=== PATIENT | female | born 1945 | race Caucasian/White ===

== ENCOUNTER 2020-02-04 11:00 | Emergency (ER) | payer MEDICARE, OTHER ==
[~2020-02-04] VITALS: Ht 157.5 cm; Wt 97.0 kg
[~2020-02-04 11:00] MED LIST: ASPI325T11 PO; CHOL10002 PO; FERR325T14 PO; HYDR12.575 PO; LISI10TA2 PO; MELO7.5T5 PO; MULT-460 PO
--- NOTE | 2020-02-04 11:44 | PHYS DOC ---
Past Medical History Past Medical History: Hypertension (HUSSEIN SUNG APRN) Past Surgical History: Other Additional Past Surgical Histo: UNKNOWN (HUSSEIN SUNG APRN) Smoking Status: Never Smoker Alcohol Use: None (HUSSEIN SUNG APRN) General Adult EDM: Chief Complaint: OTHER COMPLAINTS HPI: HPI: Patient is a 74 year old female with history of hypertension who presents the ED today complaining of 7 out of 10 left flank pain that began 2 weeks ago. Patient describes the pain as a stinging sensation. States the pain is intermi ttent and worse on movement. States she was evaluated by the PCP and they decided it was a muscle pull. She states she has been taking muscle relaxers and Aleve with no relief. Denies any chest pain, shortness of breath. Denies any urgency, frequency or dysuria. (HUSSEIN SUNG APRN) Review of Systems: Review of Systems: Constitutional: Denies fever or chills. [] Eyes: Denies change in visual acuity. [] HENT: Denies nasal congestion or sore throat. [] Respiratory: Denies cough or shortness of breath. [] Cardiovascular: Denies chest pain or edema. [] GI: Denies abdominal pain, nausea, vomiting, bloody stools or diarrhea. [] : Reports left flank pain. Denies dysuria. [] Musculoskeletal: Denies back pain or joint pain. [] Integument: Denies rash. [] Neurologic: Denies headache, focal weakness or sensory changes. [] Psychiatric: Denies depression or anxiety. [] (HUSSEIN SUNG APRN) Heart Score: Risk Factors: Risk Factors: DM, Current or recent (<one month) smoker, HTN, HLP, family history of CAD, obesity. Risk Scores: Score 0 - 3: 2.5% MACE over next 6 weeks - Discharge Home Score 4 - 6: 20.3% MACE over next 6 weeks - Admit for Clinical Observation Score 7 - 10: 72.7% MACE over next 6 weeks - Early Invasive Strategies (HUSSEIN SUNG APRN) Allergies: Allergies: Allergies Coded Allergies Type Severity Reaction Last Updated Verified hydrocodone Adverse Reaction Mild Nausea 09/05/15 Yes (HUSSEIN SUNG APRN) Physical Exam: PE: Constitutional: Well developed, well nourished, no acute distress, non-toxic appearance. [] HENT: Normocephalic, atraumatic, bilateral external ears normal, oropharynx moist, no oral exudates, nose normal. [] Eyes: PERRLA, EOMI, conjunctiva normal, no discharge. [] Neck: Normal range of motion, no tenderness, supple, no stridor. [] Cardiovascular:Heart rate regular rhythm, no murmur [] Lungs & Thorax: Bilateral breath sounds clear to auscultation [] Abdomen: Bowel sounds normal, soft, no tenderness, no masses, no pulsatile masses. [] Skin: Warm, dry, no erythema, no rash. [] Back: No tenderness, no CVA tenderness. Diffuse tenderness to the left flank muscles. Extremities: No tenderness, no cyanosis, no clubbing, ROM intact, no edema. [] Neurologic: Alert and oriented X 3, normal motor function, normal sensory function, no focal deficits noted. [] Psychologic: Affect normal, judgement normal, mood normal. [] (HUSSEIN SUNG APRN) Current Patient Data: Vital Signs: Vital Signs Date Time Temp Pulse Resp B/P (MAP) Pulse Ox O2 Delivery O2 Flow Rate FiO2 02/04/20 11:07 98.2 91 20 173/76 (108) 97 Room Air 98.2 (HUSSEIN SUNG APRN) EKG: EKG: [] (HUSSEIN SUNG APRN) Radiology/Procedures: Radiology/Procedures: []PROCEDURE: CT ANGIOGRAPHY CHEST CTA chest with and without contrast 02/04/2020. Reason for exam: Left-sided pain. Possible pulmonary embolism. Helical thin section CT images were made through the chest using an infusion of 90 mL Omnipaque 350. MIP reconstructions were performed. Exposure: One or more of the following individualized dose reduction techniques were utilized for this examination: 1. Automated exposure control 2. Adjustment of the mA and/or kV according to patient size 3. Use of iterative reconstruction technique. FINDINGS: There is minimal atelectasis posteriorly in the left lung. No significant pulmonary parenchymal abnormality is seen. The central airways show no obstruction. No enlarged axillary, mediastinal or hilar lymph nodes are seen. There is a borderline enlarged left hilar node. There is asymmetric soft tissue density posteriorly in the upper left breast when compared to the right, extending over about 4.5 cm. There is evidence of a fracture of the lateral left seventh rib. Evaluation of the pulmonary arterial tree shows only modest opacification of pulmonary artery branches. No abnormal filling defect is seen, extending at least to the proximal subsegmental branch level. Images through the upper abdomen show no significant abnormality. IMPRESSION: No evidence of pulmonary embolism. Contrast opacification of the vessels was only moderate, and smaller peripheral emboli could be missed. There is evidence of a left lateral eighth rib fracture. There is some density in the upper left breast. This is nonspecific. A neoplastic mass is possible, but if there was trauma this could be a hematoma. Electronically signed by: Anaya Remy Jr., MD (02/04/2020 2:42 PM) [id number] DICTATED and SIGNED BY: ANAYA REMY Jr, MD DATE: 02/04/20 144 PROCEDURE: CT ABDOMEN PELVIS WO CONTRAST PQRS Compliance Statement: One or more of the following individualized dose reduction techniques were utilized for this examination: 1. Automated exposure control 2. Adjustment of the mA and/or kV according to patient size 3. Use of iterative reconstruction technique CT abdomen/pelvis without contrast 02/04/2020 11:49 AM INDICATION: Left flank pain COMPARISON: None available TECHNIQUE: Multiple axial CT images of the abdomen and pelvis were obtained without intravenous contrast. Coronal and sagittal reformats are provided. FINDINGS: There is bibasilar subsegmental atelectasis. Heart size is within normal limits. There is small hiatal hernia. Evaluation of the solid abdominal viscera is limited by lack of intravenous contrast. Calcifications within the liver and spleen likely represent sequela prior granulomatous exposure. Adrenal gland is normal. There is a left adrenal nodule with attenuation of 9 Hounsfield units suggestive of a lipid rich adrenal adenoma measuring 1.9 x 1.1 cm. Pancreas is normal in appearance. Gallbladder is present without adjacent inflammation. Abdominal aorta is normal in course and caliber. No pathologically enlarged lymph nodes are identified in abdomen and pelvis. There is no free fluid or free intraperitoneal air. Small fat-containing umbilical hernia measuring 2.5 cm at the neck. There is moderate to advanced colonic diverticulosis with minimal adjacent inflammation at the proximal sigmoid colon (series 2, image 127). Consideration may be given for mild diverticulitis. No peridiverticular abscess or free intracranial air. Appendix is normal in appearance. Kidneys are symmetric in appearance. No hydronephrosis or suspicious renal mass. No calculi identified within the kidneys, ureters or urinary bladder. Urinary bladder is within normal limits given degree of distention. No suspicious pelvic mass is identified. Transitional anatomy is noted at the right lumbosacral junction. There is grade 1 anterolisthesis of L3 on L4. No suspicious osseous lesion. IMPRESSION: Findings are suggestive of mild diverticulitis on the background of moderate to severe diverticulosis. No peridiverticular abscess. No free intraperitoneal air. Lipid rich left adrenal adenoma measures 1.9 x 1.1 cm. Small fat-containing umbilical hernia. Electronically signed by: Kirill Mishra MD (02/04/2020 12:11 PM) [facility] DICTATED and SIGNED BY: KIRILL MISHRA MD DATE: 02/04/20 1211 PROCEDURE: PORTABLE CHEST 1V PORTABLE CHEST 1V 02/04/2020 11:27 AM INDICATION: Left rib and flank pain COMPARISON: 08/20/2015 TECHNIQUE: Portable frontal view of the chest is provided. FINDINGS: The cardiomediastinal silhouette is within normal limits. Lungs are clear. There are no significant pleural effusions. There is no pulmonary vascular congestion. No pneumothorax. No suspicious osseous abnormality. IMPRESSION: There is no acute cardiopulmonary process. Electronically signed by: Kirill Mishra MD (02/04/2020 11:48 AM) [facility] DICTATED and SIGNED BY: KIRILL MISHRA MD DATE: 02/04/20 1148 (HUSSEIN SUNG APRN) Course & Med Decision Making: Course & Med Decision Making Pertinent Labs and Imaging studies reviewed. (See chart for details) This is a 74-year-old female patient presenting to the ED today with left flank pain for 2 weeks. Urine analysis noted for UTI, CBC with a normal WBC, normal hemoglobin and hematocrit, CMP with no acute findings. D-dimer 1.31. CTA chest was negative for any acute findings. Noted for dense region in the breast which patient was notified to follow-up with the PCP for possible mammogram also noted for left rib [address] of the abdomen and pelvic was noted for diverticulitis. Patient received Rocephin in the ED. She was discharged on Cipro and Flagyl. Follow-up with PCP next week. Deep breath encouraged. (HUSSEIN USNG APRN) Dragon Disclaimer: Dragon Disclaimer: This electronic medical record was generated, in whole or in part, using a voice recognition dictation system. (HUSSEIN SUNG APRN) Departure Departure Impression: Primary Impression: Urinary tract infection Qualified Codes: N30.00 - Acute cystitis without hematuria Additional Impressions: Diverticulitis Left rib fracture Qualified Codes: S22.32XA - Fracture of one rib, left side, initial encounter for closed fracture Disposition: HOME, SELF-CARE Condition: STABLE Referrals: LUX ORTIZ MD (PCP) Follow-up next week Patient Instructions: Diverticulitis, Rib Fracture, [id number], Urinary Tract Infection Additional Instructions: You were evaluated in the emergency room and noted for urinary tract infection, you also noted for diverticulitis. Take the prescribed antibiotics until completed. You have a dense region in your showing up on the CAT scan left breast, this needs to be followed up with your doctor for possible mammogram You also have left rib fracture. Please ice the afffected left rib area. Take deep breaths. Follow up with your doctor next week Scripts Metronidazole (FLAGYL) 500 Mg Tablet 500 MG PO TID, #21 TAB Prov: HUSSEIN SUNG APRN 9// Ciprofloxacin Hcl (CIPRO) 500 Mg Tablet 1 TAB PO BID for 7 Days, #14 TAB 0 Refills Prov: HUSSEIN SUNG APRN //20 Hydrocodone/Apap 5-325 (NORCO 5-325 TABLET) 1 Each Tablet 1 TAB PO Q8HRS PRN for PAIN, #8 TAB Prov: HUSSEIN SUNG APRN 9//20 Ondansetron Hcl (ZOFRAN) 4 Mg Tablet 1 TAB PO Q6HRS, #20 TAB Prov: HUSSEIN SUNG APRN 920 Justicifation of Admission Dx: Justifications for Admission: Justification of Admission Dx: N/A (HUSSEIN SUNG APRN) Attending Signature Attending Signature I have reviewed the PA/SECURITIES DEALER's note and plan of care. I was available for consultation as needed during the patient's visit in the emergency department. I agree with the clinical impression, plan, and disposition. (SHYANNE BOSS DO) HUSSEIN SUNG APRN Feb 04, 2020 11:44 SHYANNE BOSS DO Feb 05, 2020 06:19
--- NOTE | 2020-02-04 11:51 | RAD ---
PORTABLE CHEST 1V 02/04/2020 11:27 AM INDICATION: Left rib and flank pain COMPARISON: 08/20/2015 TECHNIQUE: Portable frontal view of the chest is provided. FINDINGS: The cardiomediastinal silhouette is within normal limits. Lungs are clear. There are no significant pleural effusions. There is no pulmonary vascular congestion. No pneumothorax. No suspicious osseous abnormality. IMPRESSION: There is no acute cardiopulmonary process. Electronically signed by: Joceline Alvarenga MD (02/04/2020 11:48 AM) [facility]
[2020-02-04 11:54] LABS: BILIRUBIN,URINE NEGATIVE (NEG); CLARITY,URINE CLEAR; COLOR,URINE YELLOW; NITRITE,URINE NEGATIVE (NEG); PROTEIN,URINE NEGATIVE (NEG-TRACE); UROBILINOGEN,URINE 0.2 mg/dL (0.2 mg/dL)
[2020-02-04 12:02] LABS: BARBITURATES NEG (NEG); BENZODIAZEPINES NEG (NEG); CANNABINOIDS NEG (NEG); COCAINE NEG (NEG); METHADONE NEG (NEG); OPIATES NEG (NEG); PHENCYCLIDINE NEG (NEG)
[2020-02-04 12:03] LABS: AMPHETAMINE/METHAMPHETAMINE NEG (NEG)
[2020-02-04 12:06] LABS: SQUAMOUS EPITHELIAL CELL,UR MOD /LPF
[2020-02-04 12:07] LABS: RBC,URINE OCC /HPF (0-2)
[2020-02-04 12:08] LABS: BACTERIA,URINE FEW /HPF (0-FEW)
--- NOTE | 2020-02-04 12:14 | RAD ---
PQRS Compliance Statement: One or more of the following individualized dose reduction techniques were utilized for this examination: 1. Automated exposure control 2. Adjustment of the mA and/or kV according to patient size 3. Use of iterative reconstruction technique CT abdomen/pelvis without contrast 02/04/2020 11:49 AM INDICATION: Left flank pain COMPARISON: None available TECHNIQUE: Multiple axial CT images of the abdomen and pelvis were obtained without intravenous contrast. Coronal and sagittal reformats are provided. FINDINGS: There is bibasilar subsegmental atelectasis. Heart size is within normal limits. There is small hiatal hernia. Evaluation of the solid abdominal viscera is limited by lack of intravenous contrast. Calcifications within the liver and spleen likely represent sequela prior granulomatous exposure. Adrenal gland is normal. There is a left adrenal nodule with attenuation of 9 Hounsfield units suggestive of a lipid rich adrenal adenoma measuring 1.9 x 1.1 cm. Pancreas is normal in appearance. Gallbladder is present without adjacent inflammation. Abdominal aorta is normal in course and caliber. No pathologically enlarged lymph nodes are identified in abdomen and pelvis. There is no free fluid or free intraperitoneal air. Small fat-containing umbilical hernia measuring 2.5 cm at the neck. There is moderate to advanced colonic diverticulosis with minimal adjacent inflammation at the proximal sigmoid colon (series 2, image 127). Consideration may be given for mild diverticulitis. No peridiverticular abscess or free intracranial air. Appendix is normal in appearance. Kidneys are symmetric in appearance. No hydronephrosis or suspicious renal mass. No calculi identified within the kidneys, ureters or urinary bladder. Urinary bladder is within normal limits given degree of distention. No suspicious pelvic mass is identified. Transitional anatomy is noted at the right lumbosacral junction. There is grade 1 anterolisthesis of L3 on L4. No suspicious osseous lesion. IMPRESSION: Findings are suggestive of mild diverticulitis on the background of moderate to severe diverticulosis. No peridiverticular abscess. No free intraperitoneal air. Lipid rich left adrenal adenoma measures 1.9 x 1.1 cm. Small fat-containing umbilical hernia. Electronically signed by: Joceline Alvarenga MD (02/04/2020 12:11 PM) [facility]
[2020-02-04 12:51] LABS: BASO # 0.1 x10^3/uL (0.0-0.2); BASO % 1 % (0-3); EOS # 0.3 x10^3/uL (0.0-0.7); EOS % 3 % (0-3); HEMATOCRIT 40.4 % (36.0-47.0); HEMOGLOBIN 13.4 g/dL (12.0-15.5); LYMPH # 1.3 x10^3/uL (1.0-4.8); LYMPH % 14 % (24-48); MEAN CORPUSCULAR HEMOGLOBIN 29 pg (25-35); MEAN CORPUSCULAR HGB CONC 33 g/dL (31-37); MEAN CORPUSCULAR VOLUME 88 fL (79-100); MONO # 0.9 x10^3/uL (0.0-1.1); MONO % 10 % (0-9); NEUT # 6.4 x10^3/uL (1.8-7.7); NEUT % 72 % (31-73); PLATELET COUNT 321 x10^3/uL (140-400); RED BLOOD COUNT 4.59 x10^6/uL (3.50-5.40); RED CELL DISTRIBUTION WIDTH 14.9 % (11.5-14.5)
[2020-02-04 13:01] LABS: PROTHROMBIN TIME PATIENT 13.1 SEC (11.7-14.0)
[2020-02-04 13:08] LABS: CALCIUM 8.9 mg/dL (8.5-10.1); GFR 54.1; POTASSIUM 4.2 mmol/L (3.5-5.1)
[2020-02-04 13:09] LABS: ALBUMIN 3.2 g/dL (3.4-5.0); ALBUMIN/GLOBULIN RATIO 0.8 (1.0-1.7); D-DIMER 1.31 ug/mlFEU (0.00-0.50); MAGNESIUM 1.9 mg/dL (1.8-2.4); TOTAL BILIRUBIN 0.3 mg/dL (0.2-1.0); TOTAL PROTEIN 7.1 g/dL (6.4-8.2)
--- NOTE | 2020-02-04 13:17 | EKG ---
[facility] [address] [place] [address] Test Date: 2020-02-04 Test Time: 12:22:38 Pat Name: VINCE FOURNIER Department: Room: Gender: F Wide Area Network Administrator: : 1945 Requested By: HUSSEIN SUNG Order Number: [id number] Reading MD: Measurements Intervals Spur Rate: 86 P: -50 MS: 140 QRS: -10 QRSD: 84 T: -5 QT: 362 QTc: 436 Interpretive Statements SINUS RHYTHM LEFTWARD AXIS QRS(T) CONTOUR ABNORMALITY CONSIDER INFERIOR INFARCT POSSIBLY ABNORMAL ECG RI6.02 No previous ECG available for comparison
[2020-02-04] MEDS ORDERED: cefTRIAXone IV Push 1 GM VIAL. IVP ONE (13:45)
[2020-02-04] MEDS ORDERED: IOHEXOL 350 MG/ML 100 ML VIAL. IV ONE (14:00)
[2020-02-04] MEDS ORDERED: CONTRAST GIVEN. MC PRN (14:15)
[2020-02-04 14:19] VITALS: BP 139/65
--- NOTE | 2020-02-04 14:45 | RAD ---
CTA chest with and without contrast 02/04/2020. Reason for exam: Left-sided pain. Possible pulmonary embolism. Helical thin section CT images were made through the chest using an infusion of 90 mL Omnipaque 350. MIP reconstructions were performed. Exposure: One or more of the following individualized dose reduction techniques were utilized for this examination: 1. Automated exposure control 2. Adjustment of the mA and/or kV according to patient size 3. Use of iterative reconstruction technique. FINDINGS: There is minimal atelectasis posteriorly in the left lung. No significant pulmonary parenchymal abnormality is seen. The central airways show no obstruction. No enlarged axillary, mediastinal or hilar lymph nodes are seen. There is a borderline enlarged left hilar node. There is asymmetric soft tissue density posteriorly in the upper left breast when compared to the right, extending over about 4.5 cm. There is evidence of a fracture of the lateral left seventh rib. Evaluation of the pulmonary arterial tree shows only modest opacification of pulmonary artery branches. No abnormal filling defect is seen, extending at least to the proximal subsegmental branch level. Images through the upper abdomen show no significant abnormality. IMPRESSION: No evidence of pulmonary embolism. Contrast opacification of the vessels was only moderate, and smaller peripheral emboli could be missed. There is evidence of a left lateral eighth rib fracture. There is some density in the upper left breast. This is nonspecific. A neoplastic mass is possible, but if there was trauma this could be a hematoma. Electronically signed by: Quintin Remy Jr., MD (02/04/2020 2:42 PM) [id number]
[2020-02-04] MEDS ORDERED: ONDA4TAB7 PO (15:39)
[2020-02-04] MEDS ORDERED: HYDR-3164 PO (15:39)
[2020-02-04] MEDS ORDERED: CIPR500T94 PO (15:39)
[2020-02-04] MEDS ORDERED: METR500T PO (15:39)
== END 2020-02-04 16:15 | disposition home or self-care (01) ==
LOC: ER 11:00
DX: S22.32XA Fracture of one rib, left side, initial encounter for closed fracture (principal); N30.00 Acute cystitis without hematuria; R10.9 Unspecified abdominal pain; I10 Essential (primary) hypertension; Z98.890 Other specified postprocedural states; Z88.5 Allergy status to narcotic agent; X58.XXXA Exposure to other specified factors, initial encounter; Y93.89 Activity, other specified; Y92.89 Other specified places as the place of occurrence of the external cause; Y99.8 Other external cause status
CPT/HCPCS: 36415; 71045; 71275; 74176; 80053; 80307; 81001; 83690; 83735; 83880; 84443; 84484; 85025; 85379; 85610; 87086; 93005; 96374; 99285; J0696

== ENCOUNTER → 2020-04-12 | Outpatient (CLI) | payer MEDICARE, OTHER ==
[~2020-04-12] MED LIST changes: +CIPR500T94 PO; +HYDR-3164 PO; +METR500T PO; +ONDA4TAB7 PO
--- NOTE | 2020-04-13 10:00 | RAD ---
Examination: 1. Ultrasound-guided left breast core needle biopsy. 2. Digital left postprocedure mammogram. INDICATION: 75-year-old woman status post lumpectomy for left breast cancer presents with a palpable lump requested for biopsy. COMPARISON: Diagnostic left mammogram of 03/29/2020 and left breast ultrasound of that same day. TECHNIQUE AND FINDINGS: Informed consent was obtained and an appropriate procedural pause observed. Using standard sterile technique, ultrasound guidance and local anesthesia, 3 core biopsy samples were obtained of the 5 cm dominant mass in the left breast at the 2:00 position 6 cm from the nipple. In a-shaped biopsy marker was deployed in the mass and a postprocedure mammogram was obtained after hemostasis was ensured with direct breast compression for several minutes. The postprocedure mammogram showed satisfactory deployment of the S-shaped biopsy marker in the mass in the upper outer left breast with no apparent postbiopsy hematoma. It is noted that there were additional areas of potential sonographic concern in the left breast but since the patient has already undergone ipsilateral breast conservation therapy, a tissue diagnosis of multicentric disease is not likely to beneficially impact the patient's treatment plan. As such, no additional biopsy targets in the left breast were pursued at this visit. Although no request for biopsy of the patient's left axillary lymph nodes was submitted, the abnormal lymph nodes identified on previous left diagnostic breast ultrasound could be targeted for ultrasound-guided biopsy if clinically warranted. IMPRESSION: Successful ultrasound-guided left breast core needle biopsy of a dominant, 5 cm mass in the upper outer left breast. Pathology results are pending. An addendum will be issued once pathology results become available. I discussed this case (and the potential eventual need for left axillary lymph node biopsy) with the referring physician Dr. Blane Paulino's partner Dr. Johnston by telephone at 9:32 AM on 04/13/2020. Electronically signed by: Ilene Sauer MD (04/13/2020 9:57 AM) [id number]
--- NOTE | 2020-04-17 17:09 | PATHOLOGY ---
[facility] Accession Number: [id number] . 01 Material submitted: . breast - LEFT BREAST BIOPSY AT 2:00 6 CMFN. Modifiers: left . 01 Clinical history: . LEFT BREAST MASS AT 2:00 . 02 Diagnosis: Breast tissue, left breast mass 2:00 needle biopsies: - INVASIVE DUCTAL CARCINOMA WITH LOBULAR FEATURES, HISTOLOGIC GRADE 2. SEE COMMENT. (JPM:henny; 04/17/2020) S 04/17/2020 1429 Local . 02 Comment: Sections of the left breast mass at 2:00 needle biopsy reveal an invasive mammary carcinoma. The tumor cells are largely present in cords which infiltrate a fibrous stroma. Tumor cells also focally have a solid nested infiltrative appearance and show no obvious tubule formation. Tumor cells show mild to moderate nuclear pleomorphism. A few mitotic figures are present. There is no lymphovascular tumor invasion. There are no tumor associated calcifications. The invasive tumor measures up to 1.2 cm in greatest dimension on the glass slide. Immunoperoxidase stains for AE1/AE3 and E-cadherin are obtained on block A3 and yield the following results: . AE1/AE3: Tumor cells positive E-cadherin: Tumor cells positive . The morphologic and immunophenotypic findings are supportive of the diagnosis of an invasive ductal carcinoma with lobular features. The case is also examined by Dr. Teran, who concurs with the diagnosis. . Breast prognostic studies are obtained on block A3, the results of which will be reported separately. (JPM:henny; 04/16/2020) . Special stains performed: Immunoperoxidase stains for AE1/AE3 and E-cadherin on A3. . 02 Electronically signed: . Parmjit Tomas MD, Pathologist NPI- [id number] . 01 Gross description: . Received in formalin labeled "Chel Damon, left breast 2:00" are multiple cylindrical cores of rosenberg-white soft tissue measuring in aggregate 2.0 x 0.4 x 0.2 cm. The specimen is submitted entirely in cassettes A1-A3. The specimen is removed from the patient at 1521 and placed in formalin at 1522 on 04/12/2020. The specimen is removed from formalin at 1230 on 04/15/2020. [place] [facility] 04/17/2020 0930 Local . 02 Pathologist provided ICD-10: C50.912 . 02 CPT . 431701, [id number], [id number] Specimen Comment: A courtesy copy of this report has been sent to [phone] Specimen Comment: Report sent to Performed at: 01 [facility] [address] [id number] MD Graeme Teran MD Phone: [phone] Performed at: 02 [facility] [address] [place], [place] [id number] MD Parmjit Tomas MD Phone: [phone]
== END | disposition home or self-care (01) ==
LOC: US 13:09
PROVIDERS: ATTEND Family Medicine
DX: N63.21 Unspecified lump in the left breast, upper outer quadrant (principal); C50.912 Malignant neoplasm of unspecified site of left female breast; I10 Essential (primary) hypertension; M19.90 Unspecified osteoarthritis, unspecified site; Z90.710 Acquired absence of both cervix and uterus; Z98.890 Other specified postprocedural states; Z79.899 Other long term (current) drug therapy; Z79.82 Long term (current) use of aspirin; Z82.49 Family history of ischemic heart disease and other diseases of the circulatory system; Z88.8 Allergy status to other drugs, medicaments and biological substances
CPT/HCPCS: 19083; 77065; 88305; 88341; 88342; 88361; C1713; 19081; 76942

== ENCOUNTER → 2020-05-02 | Outpatient (CLI) | payer MEDICARE, OTHER ==
[~2020-05-02] MED LIST changes: +ATOR10TA60 PO; +LISI-338 PO; +NAPR220C4 PO; +VIT1CAPS12 PO
--- NOTE | 2020-05-03 08:40 | RAD ---
Exam: Ultrasound-guided left axillary lymph node biopsy, performed 03/02/2020. INDICATION: 75-year-old woman with recurrent breast cancer referred for biopsy of upper axillary lymph nodes suspicious for local santiago recurrence. COMPARISON: Left breast ultrasound of 03/29/2020, CT angiogram chest of 02/04/2020. TECHNIQUE AND FINDINGS: Informed consent was obtained and an appropriate procedural pause observed. Using standard sterile technique, ultrasound guidance and local anesthesia, an 18-gauge Temno biopsy needle was advanced through a suspicious 10 mm round level 3 left axillary lymph node and a single core biopsy sample was obtained. An S shaped biopsy marker was deployed in the lymph node and hemostasis ensured with direct biopsy site compression for several minutes to ensure hemostasis. The puncture site was dressed and postprocedure instructions were reviewed prior to patient discharge from imaging suite. There were no apparent complications. IMPRESSION: Successful ultrasound-guided left level 3 axillary lymph node core needle biopsy. Pathology results are pending. An addendum will be issued once pathology results become available. Electronically signed by: Ilene Sauer MD (05/03/2020 8:35 AM) [id number]
--- NOTE | 2020-05-03 18:55 | PATHOLOGY ---
[facility] Accession Number: [id number] . 01 Material submitted: . lymph node - LEFT AXILLARY NODE, JUST INFERIOR TO CLAVICLE. Modifiers: left, axillary tail, inferior . 01 Clinical history: . LEFT BREAST CANCER, ABNORMAL LEFT AXILLARY NODE . 02 Diagnosis: Lymph node, left axillary node inferior to clavicle needle biopsy: - METASTATIC CARCINOMA CONSISTENT WITH MAMMARY ORIGIN. SEE COMMENT. (JPM:henny; 05/03/2020) S 05/03/2020 0915 Local . 02 Comment: Sections of the left axillary node inferior to clavicle needle biopsy show extensive santiago replacement by a metastatic epithelial neoplasm. The tumor cells are present in solid nests and cords and show no obvious tubule formation. The tumor cells have modest amounts of cytoplasm, and possess rounded to ovoid nuclei showing mild to moderate nuclear pleomorphism. The morphology of the neoplasm is similar to that of the previous left breast mass at 2:00 needle biopsy ([id number]; [facility] [phone]). The case is also examined by Dr. Silva, who concurs with the diagnosis. The results are reported to Dr. Turner on 05/03/20 at 1:10 PM. (JPM:henny; 05/03/2020) . 02 Electronically signed: . Parmjit Tomas MD, Pathologist NPI- [id number] . 01 Gross description: . The specimen is received in formalin, labeled "Chel Damon, left axilla node". Received is a single needle core of pale rosenberg soft tissue measuring 1.3 cm in length by 0.1 cm in diameter. The specimen is submitted entirely in cassette A1. (CAA; 05/02/2020) QAC/QAC 05/02/2020 1741 Local . 02 Pathologist provided ICD-10: C77.3 . 02 CPT . 126034 Specimen Comment: A courtesy copy of this report has been sent to [phone], [phone] Specimen Comment: [id number], Specimen Comment: Report sent to ,DR TURNER / DR ORTIZ Performed at: 01 [facility] [address], [place] [id number] MD Graeme Teran MD Phone: [phone] Performed at: 02 [facility] [place] [address] [place], [place] [id number] MD Parmjit Tomas MD Phone: [phone]
== END | disposition home or self-care (01) ==
LOC: US 08:21
PROVIDERS: ATTEND Surgery
DX: C77.3 Secondary and unspecified malignant neoplasm of axilla and upper limb lymph nodes (principal); I10 Essential (primary) hypertension; M19.90 Unspecified osteoarthritis, unspecified site; Z85.3 Personal history of malignant neoplasm of breast; Z90.710 Acquired absence of both cervix and uterus; Z98.890 Other specified postprocedural states; Z79.899 Other long term (current) drug therapy
CPT/HCPCS: 38505; 76942; 88305; C1713; 19081; 19083; 19084

== ENCOUNTER → 2020-05-08 | Outpatient (CLI) | payer MEDICARE, OTHER ==
[~2020-05-08] MED LIST changes: -ATOR10TA60 PO; -LISI-338 PO; -NAPR220C4 PO; -VIT1CAPS12 PO
[2020-05-08 14:33] LABS: BASO # 0.1 x10^3/uL (0.0-0.2); BASO % 1 % (0-3); EOS # 0.3 x10^3/uL (0.0-0.7); EOS % 2 % (0-3); HEMATOCRIT 34.1 % (36.0-47.0); HEMOGLOBIN 11.4 g/dL (12.0-15.5); LYMPH # 1.4 x10^3/uL (1.0-4.8); LYMPH % 10 % (24-48); MEAN CORPUSCULAR HEMOGLOBIN 28 pg (25-35); MEAN CORPUSCULAR HGB CONC 33 g/dL (31-37); MEAN CORPUSCULAR VOLUME 85 fL (79-100); MONO % 7 % (0-9); NEUT # 11.6 x10^3/uL (1.8-7.7); NEUT % 81 % (31-73); PLATELET COUNT 312 x10^3/uL (140-400); RED BLOOD COUNT 4.01 x10^6/uL (3.50-5.40); RED CELL DISTRIBUTION WIDTH 16.4 % (11.5-14.5); WHITE BLOOD COUNT 14.3 x10^3/uL (4.0-11.0)
[2020-05-08 14:45] LABS: CALCIUM 9.7 mg/dL (8.5-10.1); CREATININE 1.4 mg/dL (0.6-1.0); GFR 36.6; POTASSIUM 3.6 mmol/L (3.5-5.1)
[2020-05-08 14:49] LABS: ALBUMIN 2.9 g/dL (3.4-5.0); ALBUMIN/GLOBULIN RATIO 0.7 (1.0-1.7); TOTAL BILIRUBIN 0.4 mg/dL (0.2-1.0); TOTAL PROTEIN 7.1 g/dL (6.4-8.2)
[2020-05-08 16:00] LABS: % BANDS 5 % (0-9); % PROS 1 % (0-0); % SEGS 75 % (35-66); PLT ESTIMATE ADEQUATE (ADEQUATE)
[2020-05-08 16:01] LABS: % EOS 3 % (0-5); % LYMPHS 9 % (24-48); % MONOS 5 % (0-10); % MYELOS 2 % (0-0)
[2020-05-08 16:02] LABS: ANISOCYTOSIS SLIGHT
== END ==
LOC: ONCLAB 14:20
PROVIDERS: ATTEND Internal Medicine Hematology & Oncology
DX: C50.412 Malignant neoplasm of upper-outer quadrant of left female breast (principal)
CPT/HCPCS: 36415; 80053; 85007; 85025

== ENCOUNTER → 2020-05-10 | Outpatient (CLI) | payer MEDICARE, OTHER ==
[~2020-05-10] MED LIST changes: +ATOR10TA60 PO; +IOHEXOL 240 MG/ML 50ML VIAL. PO ONE; +LISI-338 PO; +NAPR220C4 PO; +VIT1CAPS12 PO
--- NOTE | 2020-05-10 12:29 | RAD ---
CT CHEST_ABDOMEN_ AND PELVIS WITHOUT CONTRAST INDICATION: Reason: L BREAST CA PO ONLY PER ORDERS / Spl. Instructions: / History: COMPARISON: None. TECHNIQUE: Multiple contiguous axial images were obtained throughout the chest, abdomen, and pelvis without the use of IV contrast. Axial images were reformatted into coronal and sagittal planes. One or more of th e following dose reduction techniques were utilized: Automated exposure control (AEC), Adjustment of mA and/or kV according to patient size, Use of iterative reconstruction technique such as ASiR, CT sc an done according to ALARA and image gently/image wisely. FINDINGS: Chest Findings: The thyroid is symmetric. There is no axillary, mediastinal, or hilar adenopathy, although evaluatio n of the danisha is limited without IV contrast. Calcified mediastinal and hilar lymph nodes consistent with remote granulomatous disease. The thoracic aorta diameter is normal. Cardiomegaly. There is no pericardial effusion. Small hiatal h ernia. The central airways are patent. No pulmonary mass or consolidation. Stable middle lobe 4 mm nodule (s eries 2 image 35). Calcified pulmonary granulomas. No pleural abnormality. Abdomen findings: Evaluation of solid abdominal viscera is limited without the use of IV contrast. However, the gallbl adder and pancreas are unremarkable. Calcified splenic and hepatic granulomas. Stable left adrenal th ickening. The kidneys are unremarkable. There is no significant mesenteric or retroperitoneal adenop athy identified, though evaluation is limited without intravenous contrast. There is no evidence of free intraperitoneal fluid or pneumoperitoneum. Extensive colonic diverticulosis. Mild pericolic inf lammation along the distal transverse colon. Pelvis findings: The bladder and distal ureters are unremarkable. There is no significant pelvic ascites. No signifi cant iliac or inguinal adenopathy is identified. Numerous small lytic lesions throughout the visualized osseous structures. Mild height loss along the superior endplate of L4. Redemonstration of the patient's left breast mass consistent with history o f breast cancer. IMPRESSION: 1. Numerous small lytic lesions throughout the visualized osseous structures concerning for osseous m etastatic disease. Subacute rib fractures and mild height loss at L4, possibly pathologic. 2. No pulmonary mass or thoracic lymphadenopathy. No abdominal mass or lymphadenopathy, although eval uation of solid organs is impaired by lack of intravenous contrast. 3. Extensive colonic diverticulosis with mild pericolic inflammation along the distal transverse colo n, possibly a mild diverticulitis. No abscess or free air. 4. Redemonstrated left breast mass. Electronically signed by: Pastor Lizarraga MD (05/10/2020 12:26 PM) [id number]
== END ==
LOC: CT 10:53
PROVIDERS: ATTEND Internal Medicine Hematology & Oncology
DX: C50.912 Malignant neoplasm of unspecified site of left female breast (principal); K44.9 Diaphragmatic hernia without obstruction or gangrene; I51.7 Cardiomegaly; N63.20 Unspecified lump in the left breast, unspecified quadrant; K57.30 Diverticulosis of large intestine without perforation or abscess without bleeding
CPT/HCPCS: 71250; 74176

== ENCOUNTER → 2020-05-11 | Outpatient (CLI) | payer MEDICARE, OTHER ==
[~2020-05-11] MED LIST changes: +IOHEXOL 240 MG/ML 50ML VIAL. ONE; -IOHEXOL 240 MG/ML 50ML VIAL. PO ONE
--- NOTE | 2020-05-11 17:35 | RAD ---
History: Breast cancer staging Comparison: CT from May 10, 2020 Procedure: 25.4 mCI of Tc 99m MDP was injected intravenously and delayed scintigraphic images were ob tained of the skeletal system. Findings: Multifocal regions of abnormal radiotracer uptake throughout the axial and appendicular ske leton. This includes within the calvarium on the right, bilateral femurs, multiple left tibial lesion s, pelvis bilaterally. Bilateral humerus. Multiple bilateral ribs, multiple abnormal regions of incre ased uptake within the spine. There are also lesions seen in the bilateral partially visualized humer us. Impression: 1. Multifocal abnormal radiotracer uptake is seen scattered throughout the axial and appendicular ske leton concerning for diffuse osseous metastatic disease. Electronically signed by: Noble Paulino MD (05/11/2020 5:33 PM) [id number]
== END ==
LOC: NM 10:00
PROVIDERS: ATTEND Internal Medicine Hematology & Oncology
DX: C79.51 Secondary malignant neoplasm of bone (principal); C50.412 Malignant neoplasm of upper-outer quadrant of left female breast
CPT/HCPCS: 78306; A9503

== ENCOUNTER → 2020-05-11 | Outpatient (CLI) | payer MEDICARE, OTHER ==
[~2020-05-11] MED LIST changes: -IOHEXOL 240 MG/ML 50ML VIAL. ONE
== END ==
LOC: LAB 10:02
PROVIDERS: ATTEND Surgery
DX: Z01.812 Encounter for preprocedural laboratory examination (principal); Z20.828 Contact with and (suspected) exposure to other viral communicable diseases
CPT/HCPCS: U0003

== ENCOUNTER 2020-05-16 08:19 | Day surgery (SDC) | payer MEDICARE, OTHER ==
[~2020-05-16] VITALS: Ht 157.5 cm; Wt 90.5 kg
[~2020-05-16 08:19] MED LIST changes: +BUPIVACAINE-EPI 0.5%-1:200000 MPF 30 ML VIAL. INJ ONE; +HEPARIN SODIUM 5,000 UNIT in IV NORMAL SALINE 500ML BAG 500 ML IRR ONE; +HYDROmorphone 2 MG/ML VIAL IV PRN; +IV RINGERS,LACTATED 1000ML 1,000 ML IV SCH; +LIDOCAINE 1% PF 2 ML VIAL. ID PRN; -LISI-338 PO; +LISI-517 PO; +LISI10TA16 PO; -LISI10TA2 PO; +MORPHINE SULFATE 2 MG/ML VIAL. IV PRN; +ONDANSETRON PF 4 MG/2 ML VIAL. IV PRN; +PROCHLORPERAZINE 10 MG/2 ML VIAL. IV PRN; +fentaNYL PF VIAL 100 MCG/2 ML VIAL IV PRN
[2020-05-16] MEDS ORDERED: MIDAZOLAM HCL/PF 2 MG/2 ML VIAL. ONE (09:15)
[2020-05-16] MEDS ORDERED: fentaNYL PF VIAL 250 MCG/5 ML VIAL ONE (09:15)
[2020-05-16] MEDS ORDERED: PROPOFOL 10 MG/ML (20ML) VIAL. IV ONE (09:55)
[2020-05-16] MEDS ORDERED: LIDOCAINE 2% PF 5 ML VIAL. ONE (09:55)
--- NOTE | 2020-05-16 10:51 | PDOC4 ---
Operative Note Operative Note Operative Note: Preoperative Diagnosis: Left breast cancer Postoperative Diagnosis: Same Procedure: Placement of Power Port-A-Cath using SonoSite guidance Surgeon: Humberto Grade Checker: Yolanda STOUT Anesthesia: Gen. EBL: 10 mL Specimen: None Drains: None Complications: None Indication: The patient is a 75 year old femal who was recently diagnosed with left breast cancer. A request was made for placement of a Port-A-Cath to allow for chemotherapy treatment. The details and risks of the procedure were discussed. The risks include bleeding, infection, vessel injury, pneumothorax, pain, anesthetic risk, port, catheter or tubing malfunction or dysfunction, potential need for additional surgery or procedure. The patient understands and would like to proceed. Description: The patient was placed supine on the operating table and general anesthesia was performed. The bilateral neck and chest were prepped with ChloraPrep and draped in a standard surgical manner. With SonoSite ultrasound guidance the right internal jugular vein was readily identified and appeared patent. Entry was made into the vein with the skinny introducer needle under ultrasound guidance. The skinny guidewire passed readily into the central venous system. A small incision was made at the skin exit site. The skinny sheath was then placed over the guidewire. The larger guidewire was then placed within the sheath into the central venous system. Intraoperative fluoroscopy confirmed good position of the guidewire in the central venous system. The dilator and sheath were then placed over the guidewire. The catheter portion was then inserted into the central venous system and visualized using fluoroscopy. A separate right upper chest skin incision was made with a scalpel. A subcutaneous pocket was developed with cautery of sufficient size to accommodate the port. The catheter was then tunneled subcutaneously to the level of the newly formed pocket. Using fluoroscopy the catheter was positioned with the tip in the distal superior vena cava. The catheter was then cut and assembled to the port. The port was then secured to the chest wall with two 2-0 Prolene sutures. Using the Clancy needle the port readily aspirated and flushed without difficulty. Fluoroscopy confirmed good positioning of the catheter with no twists or kinks. The subcutaneous tis pilo was approximated with 3-0 Vicryl. The skin was then closed with 4-0 Monocryl. A sterile OpSite dressing was then applied. The patient tolerated the procedure well and was sent to the recovery room in stable condition. At the end of the case all counts were correct. GABRIELLE TURNER MD May 16, 2020 10:51
--- NOTE | 2020-05-16 10:52 | DISCH ---
DISCHARGE INSTRUCTIONS Condition on Discharge Condition on Discharge: Stable Activity After Discharge Activity Instructions for Disc: Resume previous activity Diet after Discharge Diet after Discharge: Regular Wound Incision Care Wound/Incision Care: Other, see below (keep port incision clean and dry) Follow-Up Follow up with: Follow with Oncology GABRIELLE TURNER MD May 16, 2020 10:52
[2020-05-16] MEDS ORDERED: SEVOFLURANE 61 TO 120 MINUTES. IH ONE (10:53)
[2020-05-16] MEDS ORDERED: HYDR-3164 PO (11:12)
[2020-05-16] MEDS ORDERED: HYDROcodone/APAP 5/325MG 1 TAB TABLET PO ONE (11:15)
[2020-05-16] MEDS ORDERED: HYDROcodone/APAP 5/325MG 1 TAB TABLET PO PRN (11:15)
[2020-05-16 12:00] VITALS: BP 123/67
== END 2020-05-16 12:50 | disposition home or self-care (01) ==
LOC: SURG 08:19
PROVIDERS: ATTEND Surgery
DX: Z45.2 Encounter for adjustment and management of vascular access device (principal); C50.912 Malignant neoplasm of unspecified site of left female breast; I10 Essential (primary) hypertension; E78.00 Pure hypercholesterolemia, unspecified; M19.90 Unspecified osteoarthritis, unspecified site; E66.9 Obesity, unspecified; Z85.3 Personal history of malignant neoplasm of breast; Z90.710 Acquired absence of both cervix and uterus; Z98.890 Other specified postprocedural states; Z79.899 Other long term (current) drug therapy; Z82.49 Family history of ischemic heart disease and other diseases of the circulatory system; Z83.3 Family history of diabetes mellitus; Z68.36 Body mass index [BMI] 36.0-36.9, adult
CPT/HCPCS: 36561; 76942; 77001; C1788; J0690; J1644; J2250; J2704; J3010; J7040; 36556

== ENCOUNTER → 2020-05-17 | Outpatient (CLI) | payer MEDICARE, OTHER ==
[2020-05-16 12:00] VITALS: BP 123/67
[~2020-05-17] MED LIST changes: -BUPIVACAINE-EPI 0.5%-1:200000 MPF 30 ML VIAL. INJ ONE; -HEPARIN SODIUM 5,000 UNIT in IV NORMAL SALINE 500ML BAG 500 ML IRR ONE; -HYDROmorphone 2 MG/ML VIAL IV PRN; -IV RINGERS,LACTATED 1000ML 1,000 ML IV SCH; -LIDOCAINE 1% PF 2 ML VIAL. ID PRN; +LISI-338 PO; -LISI-517 PO; -LISI10TA16 PO; +LISI10TA2 PO; -MORPHINE SULFATE 2 MG/ML VIAL. IV PRN; -ONDANSETRON PF 4 MG/2 ML VIAL. IV PRN; -PROCHLORPERAZINE 10 MG/2 ML VIAL. IV PRN; -fentaNYL PF VIAL 100 MCG/2 ML VIAL IV PRN
[2020-05-17 12:35] LABS: BASO # 0.1 x10^3/uL (0.0-0.2); BASO % 1 % (0-3); EOS # 0.1 x10^3/uL (0.0-0.7); EOS % 1 % (0-3); HEMATOCRIT 31.1 % (36.0-47.0); HEMOGLOBIN 9.9 g/dL (12.0-15.5); LYMPH % 11 % (24-48); MEAN CORPUSCULAR HEMOGLOBIN 27 pg (25-35); MEAN CORPUSCULAR HGB CONC 32 g/dL (31-37); MEAN CORPUSCULAR VOLUME 85 fL (79-100); MONO % 11 % (0-9); NEUT # 13.9 x10^3/uL (1.8-7.7); NEUT % 77 % (31-73); PLATELET COUNT 318 x10^3/uL (140-400); RED BLOOD COUNT 3.64 x10^6/uL (3.50-5.40); RED CELL DISTRIBUTION WIDTH 16.5 % (11.5-14.5); WHITE BLOOD COUNT 18.1 x10^3/uL (4.0-11.0)
[2020-05-17 12:41] LABS: CALCIUM 9.4 mg/dL (8.5-10.1); CREATININE 1.2 mg/dL (0.6-1.0); GFR 43.7; POTASSIUM 3.8 mmol/L (3.5-5.1)
[2020-05-17 14:12] LABS: % BANDS 11 % (0-9); % LYMPHS 12 % (24-48); % METAS 2 % (0-0); % MONOS 6 % (0-10); % MYELOS 4 % (0-0); % SEGS 65 % (35-66); ANISOCYTOSIS SLIGHT; PLT ESTIMATE ADEQUATE (ADEQUATE)
== END ==
LOC: ONCLAB 12:21
PROVIDERS: ATTEND Physician Assistant
DX: C50.412 Malignant neoplasm of upper-outer quadrant of left female breast (principal)
CPT/HCPCS: 36415; 80048; 85007; 85025; 86300

== ENCOUNTER → 2020-05-18 | Outpatient (CLI) | payer MEDICARE, OTHER ==
[2020-05-16 12:00] VITALS: BP 123/67
[~2020-05-18] MED LIST changes: +GADOTERATE 7.5 MMOL/15ML VIAL. IVP ONE
--- NOTE | 2020-05-18 16:20 | KCIC ---
MRI BRAIN WO+W Date: 05/18/2020 2:15 PM Indication: BREAST CANCER WITH NAUSEA AND FACIAL NUMBNESS. History: New left sided facial numbness. Recent br ca diagnosis. Comparison: Nuclear medicine bone scan 04/11/2020. Technique: Multiplanar multisequence MRI of the brain was performed with and without intravenous cont rast using the standard protocol. 18 cc Clariscan contrast was administered intravenously during the exam. Findings: No acute infarct. No acute or chronic hemorrhage. The ventricles are normal in size and configuration without hydrocephalus. Mild scattered FLAIR hyperintensities in the subcortical and periventricular deep white matter, a nonspecific finding, most commonly seen with chronic small vessel ischemic disea se. Mild generalized cerebral volume loss Several small enhancing calvarial lesions. The pituitary and sella are normal. No Chiari malformation. The visualized orbits and globes are normal. The visualized paranasal sinuses are clear. The mastoid air cells are clear. Normal flow voids within the vertebral, basilar, and internal carotid arteries indicating patency. IMPRESSION: 1. No evidence of intracranial metastatic disease. No acute infarct or hemorrhage. 2. Osseous metastatic disease. Electronically signed by: Pastor Lizarraga MD (05/18/2020 4:18 PM) [facility]
== END ==
LOC: KCIC MRI 12:47
PROVIDERS: ATTEND Internal Medicine Hematology & Oncology
DX: C79.51 Secondary malignant neoplasm of bone (principal); C50.412 Malignant neoplasm of upper-outer quadrant of left female breast; I67.82 Cerebral ischemia
CPT/HCPCS: 70553; A9575

== ENCOUNTER → 2020-05-31 | Outpatient (CLI) | payer MEDICARE, OTHER ==
[2020-05-16 12:00] VITALS: BP 123/67
[~2020-05-31] MED LIST changes: -GADOTERATE 7.5 MMOL/15ML VIAL. IVP ONE; -LISI-338 PO; +LISI-517 PO; +LISI10TA16 PO; -LISI10TA2 PO
[2020-05-31 11:34] LABS: BASO % 1 % (0-3); EOS # 0.1 x10^3/uL (0.0-0.7); EOS % 2 % (0-3); HEMATOCRIT 31.4 % (36.0-47.0); LYMPH # 0.8 x10^3/uL (1.0-4.8); LYMPH % 16 % (24-48); MEAN CORPUSCULAR HEMOGLOBIN 27 pg (25-35); MEAN CORPUSCULAR HGB CONC 32 g/dL (31-37); MEAN CORPUSCULAR VOLUME 85 fL (79-100); MONO # 0.2 x10^3/uL (0.0-1.1); MONO % 4 % (0-9); NEUT # 4.1 x10^3/uL (1.8-7.7); NEUT % 78 % (31-73); PLATELET COUNT 441 x10^3/uL (140-400); RED BLOOD COUNT 3.68 x10^6/uL (3.50-5.40); RED CELL DISTRIBUTION WIDTH 17.1 % (11.5-14.5); WHITE BLOOD COUNT 5.3 x10^3/uL (4.0-11.0)
[2020-05-31 11:49] LABS: CALCIUM 8.9 mg/dL (8.5-10.1); CREATININE 1.3 mg/dL (0.6-1.0); GFR 39.8; POTASSIUM 3.9 mmol/L (3.5-5.1)
[2020-05-31 11:55] LABS: ALBUMIN 2.8 g/dL (3.4-5.0); ALBUMIN/GLOBULIN RATIO 0.7 (1.0-1.7); TOTAL BILIRUBIN 0.5 mg/dL (0.2-1.0); TOTAL PROTEIN 6.7 g/dL (6.4-8.2)
[2020-06-05 17:09] LABS: METHYLMALONIC ACID 278 nmol/L (0-378)
== END ==
LOC: ONCLAB 11:22
PROVIDERS: ATTEND Physician Assistant
DX: C50.412 Malignant neoplasm of upper-outer quadrant of left female breast (principal); Z79.899 Other long term (current) drug therapy
CPT/HCPCS: 36415; 80053; 82306; 82607; 82728; 82746; 83540; 83550; 83921; 85025

== ENCOUNTER → 2020-06-14 | Outpatient (CLI) | payer MEDICARE, OTHER ==
[2020-05-16 12:00] VITALS: BP 123/67
[~2020-06-14] MED LIST changes: +LISI-338 PO; -LISI-517 PO; -LISI10TA16 PO; +LISI10TA2 PO
[2020-06-14 12:21] LABS: BASO # 0.1 x10^3/uL (0.0-0.2); BASO % 2 % (0-3); EOS # 0.1 x10^3/uL (0.0-0.7); EOS % 3 % (0-3); HEMATOCRIT 30.2 % (36.0-47.0); HEMOGLOBIN 10.3 g/dL (12.0-15.5); LYMPH # 0.6 x10^3/uL (1.0-4.8); LYMPH % 25 % (24-48); MEAN CORPUSCULAR HEMOGLOBIN 31 pg (25-35); MEAN CORPUSCULAR HGB CONC 34 g/dL (31-37); MEAN CORPUSCULAR VOLUME 90 fL (79-100); MONO # 0.2 x10^3/uL (0.0-1.1); MONO % 10 % (0-9); NEUT # 1.4 x10^3/uL (1.8-7.7); NEUT % 61 % (31-73); PLATELET COUNT 283 x10^3/uL (140-400); RED BLOOD COUNT 3.37 x10^6/uL (3.50-5.40); RED CELL DISTRIBUTION WIDTH 24.7 % (11.5-14.5); WHITE BLOOD COUNT 2.4 x10^3/uL (4.0-11.0)
[2020-06-14 12:29] LABS: GFR 53.9; POTASSIUM 3.8 mmol/L (3.5-5.1)
[2020-06-14 12:50] LABS: ALBUMIN 3.1 g/dL (3.4-5.0); ALBUMIN/GLOBULIN RATIO 0.8 (1.0-1.7); TOTAL BILIRUBIN 0.4 mg/dL (0.2-1.0); TOTAL PROTEIN 6.8 g/dL (6.4-8.2)
== END ==
LOC: ONCLAB 10:56
PROVIDERS: ATTEND Internal Medicine Hematology & Oncology
DX: C50.412 Malignant neoplasm of upper-outer quadrant of left female breast (principal)
CPT/HCPCS: 36415; 80053; 85025

== ENCOUNTER → 2020-06-28 | Outpatient (CLI) | payer MEDICARE, OTHER ==
[2020-06-28 09:31] LABS: BASO # 0.1 x10^3/uL (0.0-0.2); BASO % 3 % (0-3); EOS % 1 % (0-3); HEMATOCRIT 32.9 % (36.0-47.0); HEMOGLOBIN 10.8 g/dL (12.0-15.5); LYMPH # 0.7 x10^3/uL (1.0-4.8); LYMPH % 23 % (24-48); MEAN CORPUSCULAR HEMOGLOBIN 31 pg (25-35); MEAN CORPUSCULAR HGB CONC 33 g/dL (31-37); MEAN CORPUSCULAR VOLUME 93 fL (79-100); MONO # 0.2 x10^3/uL (0.0-1.1); MONO % 6 % (0-9); NEUT % 67 % (31-73); PLATELET COUNT 383 x10^3/uL (140-400); RED BLOOD COUNT 3.54 x10^6/uL (3.50-5.40); RED CELL DISTRIBUTION WIDTH 25.8 % (11.5-14.5)
[2020-06-28 09:43] LABS: CALCIUM 8.4 mg/dL (8.5-10.1); CREATININE 1.1 mg/dL (0.6-1.0); GFR 48.3; POTASSIUM 3.9 mmol/L (3.5-5.1)
[2020-06-28 09:49] LABS: ALBUMIN 3.3 g/dL (3.4-5.0); ALBUMIN/GLOBULIN RATIO 0.9 (1.0-1.7); TOTAL BILIRUBIN 0.5 mg/dL (0.2-1.0); TOTAL PROTEIN 6.8 g/dL (6.4-8.2)
[2020-06-28 14:04] LABS: PLT ESTIMATE ADEQUATE (ADEQUATE); POLYCHROMASIA SLIGHT
[2020-06-28 14:05] LABS: ANISOCYTOSIS MARKED
== END ==
LOC: ONCLAB 08:54
PROVIDERS: ATTEND Internal Medicine Hematology & Oncology
DX: C50.412 Malignant neoplasm of upper-outer quadrant of left female breast (principal)
CPT/HCPCS: 36415; 80053; 85025; 86300

== ENCOUNTER → 2020-07-12 | Outpatient (CLI) | payer MEDICARE, OTHER ==
[~2020-07-12] MED LIST changes: -LISI-338 PO; +LISI-517 PO; +LISI10TA16 PO; -LISI10TA2 PO
[2020-07-12 11:38] LABS: BASO # 0.1 x10^3/uL (0.0-0.2); BASO % 2 % (0-3); EOS % 2 % (0-3); HEMATOCRIT 31.8 % (36.0-47.0); HEMOGLOBIN 10.4 g/dL (12.0-15.5); LYMPH # 0.6 x10^3/uL (1.0-4.8); LYMPH % 25 % (24-48); MEAN CORPUSCULAR HEMOGLOBIN 31 pg (25-35); MEAN CORPUSCULAR HGB CONC 33 g/dL (31-37); MEAN CORPUSCULAR VOLUME 96 fL (79-100); MONO # 0.2 x10^3/uL (0.0-1.1); MONO % 9 % (0-9); NEUT # 1.6 x10^3/uL (1.8-7.7); NEUT % 63 % (31-73); PLATELET COUNT 265 x10^3/uL (140-400); RED BLOOD COUNT 3.33 x10^6/uL (3.50-5.40); WHITE BLOOD COUNT 2.5 x10^3/uL (4.0-11.0)
[2020-07-12 11:53] LABS: CALCIUM 8.6 mg/dL (8.5-10.1); CREATININE 0.9 mg/dL (0.6-1.0); GFR 60.9; POTASSIUM 3.9 mmol/L (3.5-5.1)
[2020-07-12 11:59] LABS: ALBUMIN 3.4 g/dL (3.4-5.0); ALBUMIN/GLOBULIN RATIO 1.1 (1.0-1.7); TOTAL BILIRUBIN 0.4 mg/dL (0.2-1.0); TOTAL PROTEIN 6.6 g/dL (6.4-8.2)
[2020-07-12 13:00] LABS: ANISOCYTOSIS PRESENT; PLT ESTIMATE ADEQUATE (ADEQUATE)
== END ==
LOC: ONCLAB 11:06
PROVIDERS: ATTEND Internal Medicine Hematology & Oncology
DX: C50.412 Malignant neoplasm of upper-outer quadrant of left female breast (principal)
CPT/HCPCS: 36415; 80053; 85025

== ENCOUNTER → 2020-08-07 | Outpatient (CLI) | payer MEDICARE, OTHER ==
[2020-08-07 13:51] LABS: BASO # 0.1 x10^3/uL (0.0-0.2); BASO % 1 % (0-3); EOS # 0.5 x10^3/uL (0.0-0.7); EOS % 6 % (0-3); HEMATOCRIT 34.8 % (36.0-47.0); HEMOGLOBIN 11.6 g/dL (12.0-15.5); LYMPH # 1.6 x10^3/uL (1.0-4.8); LYMPH % 20 % (24-48); MEAN CORPUSCULAR HEMOGLOBIN 32 pg (25-35); MEAN CORPUSCULAR HGB CONC 34 g/dL (31-37); MEAN CORPUSCULAR VOLUME 96 fL (79-100); MONO # 0.9 x10^3/uL (0.0-1.1); MONO % 11 % (0-9); NEUT # 5.1 x10^3/uL (1.8-7.7); NEUT % 63 % (31-73); PLATELET COUNT 319 x10^3/uL (140-400); RED BLOOD COUNT 3.64 x10^6/uL (3.50-5.40); RED CELL DISTRIBUTION WIDTH 22.4 % (11.5-14.5); WHITE BLOOD COUNT 8.1 x10^3/uL (4.0-11.0)
[2020-08-07 14:01] LABS: CALCIUM 8.4 mg/dL (8.5-10.1); CREATININE 0.8 mg/dL (0.6-1.0); GFR 69.7; POTASSIUM 3.8 mmol/L (3.5-5.1)
[2020-08-07 14:06] LABS: ALBUMIN 3.3 g/dL (3.4-5.0); TOTAL BILIRUBIN 0.3 mg/dL (0.2-1.0); TOTAL PROTEIN 6.7 g/dL (6.4-8.2)
== END ==
LOC: ONCLAB 13:27
PROVIDERS: ATTEND Internal Medicine Hematology & Oncology
DX: C50.412 Malignant neoplasm of upper-outer quadrant of left female breast (principal)
CPT/HCPCS: 36415; 80053; 85025

== ENCOUNTER → 2020-09-04 | Outpatient (CLI) | payer MEDICARE, OTHER ==
[2020-09-04 13:40] LABS: BASO # 0.1 x10^3/uL (0.0-0.2); BASO % 2 % (0-3); EOS # 0.1 x10^3/uL (0.0-0.7); EOS % 3 % (0-3); HEMATOCRIT 36.1 % (36.0-47.0); LYMPH # 1.2 x10^3/uL (1.0-4.8); LYMPH % 34 % (24-48); MEAN CORPUSCULAR HEMOGLOBIN 33 pg (25-35); MEAN CORPUSCULAR HGB CONC 33 g/dL (31-37); MEAN CORPUSCULAR VOLUME 99 fL (79-100); MONO # 0.6 x10^3/uL (0.0-1.1); MONO % 17 % (0-9); NEUT # 1.6 x10^3/uL (1.8-7.7); NEUT % 45 % (31-73); PLATELET COUNT 283 x10^3/uL (140-400); RED BLOOD COUNT 3.65 x10^6/uL (3.50-5.40); RED CELL DISTRIBUTION WIDTH 19.3 % (11.5-14.5); WHITE BLOOD COUNT 3.4 x10^3/uL (4.0-11.0)
[2020-09-04 14:01] LABS: CALCIUM 8.2 mg/dL (8.5-10.1); CREATININE 0.8 mg/dL (0.6-1.0); GFR 69.7; POTASSIUM 3.8 mmol/L (3.5-5.1)
[2020-09-04 14:08] LABS: ALBUMIN 3.3 g/dL (3.4-5.0); TOTAL BILIRUBIN 0.2 mg/dL (0.2-1.0); TOTAL PROTEIN 6.5 g/dL (6.4-8.2)
== END ==
LOC: ONCLAB 13:14
PROVIDERS: ATTEND Internal Medicine Hematology & Oncology
DX: C50.412 Malignant neoplasm of upper-outer quadrant of left female breast (principal)
CPT/HCPCS: 36415; 80053; 85025; 86300

== ENCOUNTER → 2020-09-14 | Outpatient (CLI) | payer MEDICARE, OTHER ==
[2020-09-14 09:49] LABS: BASO # 0.1 x10^3/uL (0.0-0.2); BASO % 3 % (0-3); EOS % 1 % (0-3); HEMATOCRIT 35.3 % (36.0-47.0); LYMPH # 0.7 x10^3/uL (1.0-4.8); LYMPH % 22 % (24-48); MEAN CORPUSCULAR HEMOGLOBIN 34 pg (25-35); MEAN CORPUSCULAR HGB CONC 34 g/dL (31-37); MEAN CORPUSCULAR VOLUME 99 fL (79-100); MONO # 0.2 x10^3/uL (0.0-1.1); MONO % 6 % (0-9); NEUT # 2.3 x10^3/uL (1.8-7.7); NEUT % 68 % (31-73); PLATELET COUNT 320 x10^3/uL (140-400); RED BLOOD COUNT 3.58 x10^6/uL (3.50-5.40); RED CELL DISTRIBUTION WIDTH 17.7 % (11.5-14.5); WHITE BLOOD COUNT 3.3 x10^3/uL (4.0-11.0)
== END ==
LOC: ONCLAB 09:28
PROVIDERS: ATTEND Physician Assistant
DX: C50.412 Malignant neoplasm of upper-outer quadrant of left female breast (principal)
CPT/HCPCS: 36415; 85025

== ENCOUNTER → 2020-09-24 | Outpatient (CLI) | payer MEDICARE, OTHER ==
[~2020-09-24] MED LIST changes: +IOHEXOL 240 MG/ML 50ML VIAL. PO ONE
--- NOTE | 2020-09-24 11:27 | RAD ---
EXAM: Chest, abdomen and pelvis CT with intravenous contrast. HISTORY: Breast cancer. TECHNIQUE: Computed tomographic images of the chest, abdomen and pelvis were obtained following the a dministration of intravenous contrast. Multiplanar reformatting was performed. *One or more of the following individualized dose reduction techniques were utilized for this examina tion: 1. Automated exposure control. 2. Adjustment of the mA and/or kV according to patient size. 3. Use of iterative reconstruction technique. COMPARISON: 05/10/2020. 02/04/2020 FINDINGS: Chest: There is been slight interval decrease in a mass within the upper outer quadrant of the left breast compared to the CT performed 02/04/2020, favoring interval therapy response. This measu res approximately 3.2 cm compared to a prior measurement of 4.1 cm. There is left breast skin thicken ing due to neoplasm or ration changes. There is a right chest wall port catheter with the tip in expe cted position. No axillary lymphadenopathy is seen. There is cardiomegaly. The thoracic aorta is normal in caliber. No pathologically enlarged systolic o r hilar lymph node is seen. There are calcified granulomas. There is no pneumothorax or pleural effus ion. There is minimal emphysema. There are few calcified granulomas. There is medial right middle lob e and lingular atelectasis or scarring. There is a stable cluster of tiny groundglass nodules within the lateral right middle lobe measuring up to 2 mm, likely postinfectious or postinflammatory in etio logy. There is diffuse osseous metastatic disease. There is a moderate pathologic compression fracture of T 6, new compared to the prior exam. The number and size of osseous lesions has increased, some which a re now peripherally sclerotic and possibly due to treated metastases. There are healed or nearly heal ed pathologic fractures involving the lateral left seventh rib in the anterior right seventh and fift h ribs. Abdomen and pelvis: There is a small hiatal hernia. No suspicious hepatic lesion is seen. There are h epatic and splenic granulomas. The gallbladder is unremarkable. The pancreas is unremarkable. No adre nal gland lesion is seen on this noncontrast exam. There is no hydronephrosis. There is extensive col onic diverticulosis. There is moderate colonic stool. The bladder is unremarkable. The uterus is abse nt. There is no retroperitoneal or mesenteric lymphadenopathy. There is a small fat-containing umbili leelee hernia. There is diffuse osseous metastatic disease. The number and size of lesions is increased compared to the prior exam, some of which are sclerotic and likely due to treated metastases. There is a mild to moderate pathologic compression fracture of L4 which appears minimally increased compared to the prio r exam. IMPRESSION: 1. Diffuse osseous metastatic disease, increased compared to the prior exam. There are a few lesions which are now sclerotic and possibly due to treated metastases. There is a new moderate pathologic co mpression fracture of T6 and there has been slight interval increase in a pathologic fracture of L4. There are healed or healing pathologic fractures involving multiple ribs, described above. 2. Slight interval decrease in the size of a left breast mass, consistent with slight interval therap y response. There is persistent left breast skin thickening likely due to neoplasm. The possibility o f changes due to chest wall radiation are also considered if this has not been performed. 3. Extensive colonic diverticulosis. 4. Small hiatal hernia. Electronically signed by: Kalani Villa MD (09/24/2020 11:25 AM) [id number]
--- NOTE | 2020-09-24 14:13 | RAD ---
EXAM: Nuclear bone scan. HISTORY: Breast cancer. TECHNIQUE: Following the intravenous injection of 25 mCi of Tc 99m labeled methylene diphosphonate (M DP), whole body imaging was performed. COMPARISON: CT obtained on the same date. Bone scan dated 05/11/2020. FINDINGS: There is abnormal tracer activity throughout the axial and appendicular skeleton consistent with diffuse osseous metastatic disease. The largest lesions are seen involving the right parietal b one, left mandible, right iliac wing, sternum, proximal right humerus, multiple ribs, thoracolumbar s pine and left greater than right femurs and tibias. The degree of tracer activity associated with the majority of lesions is slightly decreased compared to the prior study, favoring interval treatment r esponse. However, there are a few lesions which demonstrate subtle increased tracer activity, primari ly involving the inferior anterior right ribs, left mandible and proximal right femur. There is an in cidental right knee arthroplasty IMPRESSION: Diffuse osseous metastatic disease. There has been slight interval decrease in the degree of greater tracer activity associated with several lesions. However,, there are a few lesions which demonstrate subtle increased tracer activity compared to the prior exam. This is consistent with mixe d interval therapy response. Electronically signed by: Kalani Villa MD (09/24/2020 2:11 PM) [id number]
== END ==
LOC: NM 09:37
PROVIDERS: ATTEND Internal Medicine Hematology & Oncology
DX: C50.912 Malignant neoplasm of unspecified site of left female breast (principal); N63.21 Unspecified lump in the left breast, upper outer quadrant; J43.9 Emphysema, unspecified; K75.3 Granulomatous hepatitis, not elsewhere classified; K57.30 Diverticulosis of large intestine without perforation or abscess without bleeding; K44.9 Diaphragmatic hernia without obstruction or gangrene; Z90.49 Acquired absence of other specified parts of digestive tract
CPT/HCPCS: 71250; 74176; 78306; A9503; Q9966

== ENCOUNTER → 2020-10-02 | Outpatient (CLI) | payer MEDICARE, OTHER ==
[~2020-10-02] MED LIST changes: -IOHEXOL 240 MG/ML 50ML VIAL. PO ONE
[2020-10-02 14:06] LABS: BASO # 0.1 x10^3/uL (0.0-0.2); BASO % 2 % (0-3); EOS # 0.1 x10^3/uL (0.0-0.7); EOS % 2 % (0-3); HEMATOCRIT 36.1 % (36.0-47.0); HEMOGLOBIN 12.2 g/dL (12.0-15.5); LYMPH # 1.1 x10^3/uL (1.0-4.8); LYMPH % 33 % (24-48); MEAN CORPUSCULAR HEMOGLOBIN 33 pg (25-35); MEAN CORPUSCULAR HGB CONC 34 g/dL (31-37); MEAN CORPUSCULAR VOLUME 99 fL (79-100); MONO # 0.5 x10^3/uL (0.0-1.1); MONO % 15 % (0-9); NEUT # 1.6 x10^3/uL (1.8-7.7); NEUT % 48 % (31-73); PLATELET COUNT 252 x10^3/uL (140-400); RED BLOOD COUNT 3.65 x10^6/uL (3.50-5.40); WHITE BLOOD COUNT 3.4 x10^3/uL (4.0-11.0)
[2020-10-02 14:07] LABS: CALCIUM 8.3 mg/dL (8.5-10.1); CREATININE 0.9 mg/dL (0.6-1.0); GFR 60.9; POTASSIUM 3.9 mmol/L (3.5-5.1)
[2020-10-02 14:14] LABS: ALBUMIN 3.9 g/dL (3.4-5.0); ALBUMIN/GLOBULIN RATIO 1.4 (1.0-1.7); TOTAL BILIRUBIN 0.3 mg/dL (0.2-1.0); TOTAL PROTEIN 6.7 g/dL (6.4-8.2)
== END ==
LOC: ONCLAB 13:02
PROVIDERS: ATTEND Internal Medicine Hematology & Oncology
DX: C50.412 Malignant neoplasm of upper-outer quadrant of left female breast (principal)
CPT/HCPCS: 36415; 80053; 85025

== ENCOUNTER → 2020-11-01 | Outpatient (CLI) | payer MEDICARE, OTHER ==
[2020-11-01 14:32] LABS: BASO # 0.1 x10^3/uL (0.0-0.2); BASO % 2 % (0-3); EOS # 0.1 x10^3/uL (0.0-0.7); EOS % 2 % (0-3); HEMATOCRIT 34.1 % (36.0-47.0); HEMOGLOBIN 11.6 g/dL (12.0-15.5); LYMPH # 1.1 x10^3/uL (1.0-4.8); LYMPH % 29 % (24-48); MEAN CORPUSCULAR HEMOGLOBIN 34 pg (25-35); MEAN CORPUSCULAR HGB CONC 34 g/dL (31-37); MEAN CORPUSCULAR VOLUME 100 fL (79-100); MONO # 0.6 x10^3/uL (0.0-1.1); MONO % 17 % (0-9); NEUT # 1.8 x10^3/uL (1.8-7.7); NEUT % 50 % (31-73); PLATELET COUNT 259 x10^3/uL (140-400); RED BLOOD COUNT 3.43 x10^6/uL (3.50-5.40); RED CELL DISTRIBUTION WIDTH 18.4 % (11.5-14.5); WHITE BLOOD COUNT 3.6 x10^3/uL (4.0-11.0)
[2020-11-01 14:52] LABS: CALCIUM 8.7 mg/dL (8.5-10.1); GFR 53.9; POTASSIUM 3.8 mmol/L (3.5-5.1)
[2020-11-01 14:57] LABS: ALBUMIN 3.7 g/dL (3.4-5.0); ALBUMIN/GLOBULIN RATIO 1.3 (1.0-1.7); TOTAL BILIRUBIN 0.4 mg/dL (0.2-1.0); TOTAL PROTEIN 6.5 g/dL (6.4-8.2)
== END ==
LOC: ONCLAB 13:08
PROVIDERS: ATTEND Internal Medicine Hematology & Oncology
DX: C50.412 Malignant neoplasm of upper-outer quadrant of left female breast (principal)
CPT/HCPCS: 36415; 80053; 85025

== ENCOUNTER → 2020-11-05 | Outpatient (CLI) | payer MEDICARE, OTHER ==
[~2020-11-05] MED LIST changes: +IOHEXOL 300 MG/ML 100ML VIAL. IV ONE
--- NOTE | 2020-11-05 08:59 | RAD ---
EXAM: CT FACIAL BONES WITH CONTRAST. HISTORY: Left facial numbness and tingling. Breast cancer. TECHNIQUE: Computed tomography of the facial bones was performed without intravenous contrast. One or more of the following individualized dose reduction techniques were utilized for this examination: 1. Automated exposure control. 2. Adjustment of the mA and/or kV according to patient size. 3. Use of iterative reconstruction technique. COMPARISON: None. FINDINGS: No facial fractures or suspicious osseous lesions are identified. There is mild mucosal thi ckening in the ethmoid air cells and maxillary sinuses. The orbits are unremarkable. There are change s of bilateral cataract surgery. The parotid glands and submandibular glands are unremarkable. The left submandibular gland has an acc essory lobe extending superiorly. No soft tissue mass or lymphadenopathy is included [id number]. The included portions of the temporal bones and calvarium are unremarkable. Limited images of the bra in reveal no acute abnormality. IMPRESSION: 1. No osseous or soft tissue lesion within the face. Electronically signed by: Jh Al MD (11/05/2020 8:56 AM) [id number]
== END ==
LOC: CT 08:26
PROVIDERS: ATTEND Internal Medicine Hematology & Oncology
DX: C50.412 Malignant neoplasm of upper-outer quadrant of left female breast (principal); C79.51 Secondary malignant neoplasm of bone; R20.1 Hypoesthesia of skin
CPT/HCPCS: 70487; Q9967

== ENCOUNTER → 2020-11-29 | Outpatient (CLI) | payer MEDICARE, OTHER ==
[~2020-11-29] MED LIST changes: -IOHEXOL 300 MG/ML 100ML VIAL. IV ONE
[2020-11-29 13:50] LABS: BASO # 0.1 x10^3/uL (0.0-0.2); BASO % 2 % (0-3); EOS # 0.1 x10^3/uL (0.0-0.7); EOS % 2 % (0-3); HEMATOCRIT 36.3 % (36.0-47.0); HEMOGLOBIN 12.1 g/dL (12.0-15.5); LYMPH # 1.1 x10^3/uL (1.0-4.8); LYMPH % 30 % (24-48); MEAN CORPUSCULAR HEMOGLOBIN 34 pg (25-35); MEAN CORPUSCULAR HGB CONC 33 g/dL (31-37); MEAN CORPUSCULAR VOLUME 101 fL (79-100); MONO # 0.6 x10^3/uL (0.0-1.1); MONO % 18 % (0-9); NEUT # 1.7 x10^3/uL (1.8-7.7); NEUT % 48 % (31-73); PLATELET COUNT 232 x10^3/uL (140-400); RED BLOOD COUNT 3.59 x10^6/uL (3.50-5.40); RED CELL DISTRIBUTION WIDTH 16.8 % (11.5-14.5); WHITE BLOOD COUNT 3.6 x10^3/uL (4.0-11.0)
[2020-11-29 13:58] LABS: CALCIUM 8.6 mg/dL (8.5-10.1); CREATININE 1.1 mg/dL (0.6-1.0); GFR 48.3; POTASSIUM 3.9 mmol/L (3.5-5.1)
[2020-11-29 14:08] LABS: ALBUMIN 3.8 g/dL (3.4-5.0); ALBUMIN/GLOBULIN RATIO 1.4 (1.0-1.7); TOTAL BILIRUBIN 0.4 mg/dL (0.2-1.0); TOTAL PROTEIN 6.6 g/dL (6.4-8.2)
== END ==
LOC: ONCLAB 12:32
PROVIDERS: ATTEND Physician Assistant
DX: C50.412 Malignant neoplasm of upper-outer quadrant of left female breast (principal)
CPT/HCPCS: 36415; 80053; 83615; 85025

== ENCOUNTER → 2020-12-24 | Outpatient (CLI) | payer MEDICARE, OTHER ==
[~2020-12-24] MED LIST changes: +CONTRAST GIVEN. MC PRN; +IOHEXOL 240 MG/ML 50ML VIAL. PO ONE; +IOHEXOL 300 MG/ML 100ML VIAL. IV ONE
--- NOTE | 2020-12-24 16:55 | RAD ---
PQRS Compliance Statement: One or more of the following individualized dose reduction techniques were utilized for this examinat ion: 1. Automated exposure control 2. Adjustment of the mA and/or kV according to patient size 3. Use of iterative reconstruction technique CT CHEST+ABD+PELVIS W Clinical Indication: Reason: BREAST CANCER / Comparison: CT chest abdomen and pelvis without contrast September 24, 2020. Technique: Helical CT imaging of the chest, abdomen and pelvis is performed after 60 cc of Omnipaque 300 IV contrast. Oral contrast also administered. Findings: There is right chest Port-A-Cath. The thyroid is symmetric. Irregular left breast mass is unchanged. Left breast skin thickening is also unchanged. Calcified AP window lymph nodes. Great vessels are sta ble. Cardiac size normal, no pericardial effusion. The central airways are patent. Left upper lobe calcified granuloma. No pulmonary nodule is identifie d. Calcified granulomas in the liver and spleen. Cholelithiasis. Pancreas and right adrenal gland are no rmal. Nodularity of the left adrenal gland is stable. Abdominal aorta is normal caliber. Kidneys enha nce symmetrically, no hydronephrosis. No small bowel obstruction. Small fat-containing umbilical hernia. Moderate distal colon diverticulos is. No abdominal adenopathy. The urinary bladder is normal. Hysterectomy. No pelvic free fluid. 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 No significant change by CT is identified. Pa thologic fracture superior endplate of L4 vertebral body is unchanged. Pathologic fracture of the T6 vertebral body is stable. IMPRESSION: 1. Diffuse bone metastases are without significant change. 2. Irregular mass and skin thickening of the left breast are unchanged. 3. No new sites of metastatic disease are noted. Electronically signed by: Robert Tinsley MD (12/24/2020 4:52 PM) [id number]
--- NOTE | 2020-12-24 17:06 | RAD ---
Nuclear medicine whole body bone scan History: Reason: breast cancer restaging / Comparison: CT chest abdomen pelvis with contrast, same day. Whole-body bone scan September 24, 2020. Technique: Examination performed after intravenous administration of 25 mCi Technetium 99m MDP. Imag es of the whole body were obtained in the anterior and posterior projections. Findings: Distribution of increased tracer uptake of bone metastases is unchanged from the prior study. There i s focal tracer uptake of the right posterior calvarium, left mandible, proximal right humerus, sternu m, and several left ribs. There is moderately heterogeneous tracer uptake in the thoracolumbar spine with multiple foci of increased tracer uptake. Several of the foci of increased tracer uptake appear less intense than on the prior study but the clinical significance of relative differences in bone sc an uptake may not always correlate with actual treatment response. Tracer uptake in the bilateral low er extremities is stable. Right knee arthroplasty. There is no evidence of new pathologic fracture. S ome tracer uptake of the shoulders may be degenerative. Impression: 1. No new bone metastases are identified scintigraphically. 2. There is no significant interval change of diffuse bone metastases. Electronically signed by: Robert Tinsley MD (12/24/2020 5:03 PM) [id number]
== END ==
LOC: NM 09:33
PROVIDERS: ATTEND Physician Assistant
DX: C79.51 Secondary malignant neoplasm of bone (principal); C50.412 Malignant neoplasm of upper-outer quadrant of left female breast; N63.20 Unspecified lump in the left breast, unspecified quadrant; R59.0 Localized enlarged lymph nodes; J84.10 Pulmonary fibrosis, unspecified; K76.89 Other specified diseases of liver; D73.89 Other diseases of spleen; K80.20 Calculus of gallbladder without cholecystitis without obstruction; K42.9 Umbilical hernia without obstruction or gangrene; K57.30 Diverticulosis of large intestine without perforation or abscess without bleeding; M84.48XA Pathological fracture, other site, initial encounter for fracture; Z90.710 Acquired absence of both cervix and uterus
CPT/HCPCS: 71260; 74177; 78306; A9503; Q9966; Q9967

== ENCOUNTER → 2020-12-27 | Outpatient (CLI) | payer MEDICARE, OTHER ==
[~2020-12-27] MED LIST changes: -CONTRAST GIVEN. MC PRN; -IOHEXOL 240 MG/ML 50ML VIAL. PO ONE; -IOHEXOL 300 MG/ML 100ML VIAL. IV ONE
[2020-12-27 11:19] LABS: BASO # 0.1 x10^3/uL (0.0-0.2); BASO % 2 % (0-3); EOS # 0.1 x10^3/uL (0.0-0.7); EOS % 3 % (0-3); HEMATOCRIT 35.8 % (36.0-47.0); HEMOGLOBIN 11.9 g/dL (12.0-15.5); LYMPH # 1.1 x10^3/uL (1.0-4.8); LYMPH % 27 % (24-48); MEAN CORPUSCULAR HEMOGLOBIN 35 pg (25-35); MEAN CORPUSCULAR HGB CONC 33 g/dL (31-37); MEAN CORPUSCULAR VOLUME 104 fL (79-100); MONO # 0.5 x10^3/uL (0.0-1.1); MONO % 13 % (0-9); NEUT # 2.2 x10^3/uL (1.8-7.7); NEUT % 55 % (31-73); PLATELET COUNT 239 x10^3/uL (140-400); RED BLOOD COUNT 3.46 x10^6/uL (3.50-5.40); RED CELL DISTRIBUTION WIDTH 16.5 % (11.5-14.5); WHITE BLOOD COUNT 3.9 x10^3/uL (4.0-11.0)
[2020-12-27 11:24] LABS: CALCIUM 8.7 mg/dL (8.5-10.1); CREATININE 1.1 mg/dL (0.6-1.0); GFR 48.3; POTASSIUM 3.7 mmol/L (3.5-5.1)
[2020-12-27 11:30] LABS: ALBUMIN 3.5 g/dL (3.4-5.0); ALBUMIN/GLOBULIN RATIO 1.2 (1.0-1.7); TOTAL BILIRUBIN 0.3 mg/dL (0.2-1.0); TOTAL PROTEIN 6.5 g/dL (6.4-8.2)
== END ==
LOC: ONCLAB 10:10
PROVIDERS: ATTEND Physician Assistant
DX: C50.412 Malignant neoplasm of upper-outer quadrant of left female breast (principal)
CPT/HCPCS: 36415; 80053; 85025; 86300

== ENCOUNTER → 2021-01-24 | Outpatient (CLI) | payer MEDICARE, OTHER ==
[2021-01-24 12:01] LABS: BASO # 0.1 x10^3/uL (0.0-0.2); BASO % 2 % (0-3); CALCIUM 8.7 mg/dL (8.5-10.1); EOS # 0.1 x10^3/uL (0.0-0.7); EOS % 3 % (0-3); GFR 53.9; HEMATOCRIT 36.7 % (36.0-47.0); HEMOGLOBIN 12.4 g/dL (12.0-15.5); LYMPH % 27 % (24-48); MEAN CORPUSCULAR HEMOGLOBIN 35 pg (25-35); MEAN CORPUSCULAR HGB CONC 34 g/dL (31-37); MEAN CORPUSCULAR VOLUME 103 fL (79-100); MONO # 0.6 x10^3/uL (0.0-1.1); MONO % 15 % (0-9); NEUT % 53 % (31-73); PLATELET COUNT 238 x10^3/uL (140-400); POTASSIUM 4.5 mmol/L (3.5-5.1); RED BLOOD COUNT 3.55 x10^6/uL (3.50-5.40); RED CELL DISTRIBUTION WIDTH 16.4 % (11.5-14.5); WHITE BLOOD COUNT 3.8 x10^3/uL (4.0-11.0)
[2021-01-24 12:08] LABS: ALBUMIN 3.5 g/dL (3.4-5.0); ALBUMIN/GLOBULIN RATIO 1.1 (1.0-1.7); TOTAL BILIRUBIN 0.4 mg/dL (0.2-1.0); TOTAL PROTEIN 6.7 g/dL (6.4-8.2)
== END ==
LOC: ONCLAB 10:56
PROVIDERS: ATTEND Physician Assistant
DX: C50.412 Malignant neoplasm of upper-outer quadrant of left female breast (principal)
CPT/HCPCS: 36415; 80053; 85025

== ENCOUNTER → 2021-02-11 | Outpatient (CLI) | payer MEDICARE, OTHER ==
--- NOTE | 2021-02-11 16:01 | RAD ---
EXAM: Chest, 2 views; right ribs, 4 views. HISTORY: Pain. Cough. Breast cancer. COMPARISON: 12/24/2020 FINDINGS: 2 views of the chest and 4 views of the right ribs are obtained. There is suspected bilater al lower lobe atelectasis. There is no consolidation, pleural effusion or pneumothorax. There is a st able cardiac silhouette. There is a right chest wall port catheter with the tip overlying the superio r vena cava. There is degenerative change involving the thoracic and lumbar spine. There is callus fo rmation surrounding healed or healing anterior lateral right second, fifth, sixth, seventh, ninth and teth rib fractures. IMPRESSION: 1. No acute pulmonary finding. 2. Callus formation surrounding a healed or healing right rib fractures. No acute displaced fracture is seen. These are likely pathologic fractures given diffuse osseous metastatic disease demonstrated on the recent comparison CT. Electronically signed by: Kalani Villa MD (02/11/2021 3:59 PM) [id number]
== END ==
LOC: RAD 14:25
PROVIDERS: ATTEND Physician Assistant
DX: C50.412 Malignant neoplasm of upper-outer quadrant of left female breast (principal)
CPT/HCPCS: 71046; 71100

== ENCOUNTER → 2021-02-11 | Outpatient (CLI) | payer MEDICARE, OTHER ==
[2021-02-11 13:30] LABS: BASO # 0.1 x10^3/uL (0.0-0.2); BASO % 2 % (0-3); EOS % 2 % (0-3); HEMATOCRIT 34.8 % (36.0-47.0); HEMOGLOBIN 11.6 g/dL (12.0-15.5); LYMPH # 0.8 x10^3/uL (1.0-4.8); LYMPH % 26 % (24-48); MEAN CORPUSCULAR HEMOGLOBIN 35 pg (25-35); MEAN CORPUSCULAR HGB CONC 33 g/dL (31-37); MEAN CORPUSCULAR VOLUME 104 fL (79-100); MONO # 0.3 x10^3/uL (0.0-1.1); MONO % 8 % (0-9); NEUT # 1.9 x10^3/uL (1.8-7.7); NEUT % 62 % (31-73); PLATELET COUNT 212 x10^3/uL (140-400); RED BLOOD COUNT 3.33 x10^6/uL (3.50-5.40); RED CELL DISTRIBUTION WIDTH 15.5 % (11.5-14.5); WHITE BLOOD COUNT 3.1 x10^3/uL (4.0-11.0)
[2021-02-11 13:36] LABS: CALCIUM 8.5 mg/dL (8.5-10.1); GFR 53.8; POTASSIUM 4.2 mmol/L (3.5-5.1)
[2021-02-11 13:41] LABS: ALBUMIN 3.5 g/dL (3.4-5.0); ALBUMIN/GLOBULIN RATIO 1.2 (1.0-1.7); TOTAL BILIRUBIN 0.4 mg/dL (0.2-1.0); TOTAL PROTEIN 6.5 g/dL (6.4-8.2)
[2021-02-11 14:16] LABS: BILIRUBIN,URINE NEGATIVE (NEG); CLARITY,URINE CLEAR; COLOR,URINE YELLOW; NITRITE,URINE NEGATIVE (NEG); PROTEIN,URINE NEGATIVE (NEG-TRACE); UROBILINOGEN,URINE 0.2 mg/dL (0.2 mg/dL)
[2021-02-11 14:25] LABS: BACTERIA,URINE 0 /HPF (0-FEW)
== END ==
LOC: ONCLAB 12:39
PROVIDERS: ATTEND Physician Assistant
DX: C50.412 Malignant neoplasm of upper-outer quadrant of left female breast (principal); Z79.899 Other long term (current) drug therapy
CPT/HCPCS: 36415; 71046; 71100; 80053; 81001; 82248; 85025; 86300; 87086

== ENCOUNTER → 2021-02-21 | Outpatient (CLI) | payer MEDICARE, OTHER ==
[2021-02-21 09:49] LABS: BASO # 0.1 x10^3/uL (0.0-0.2); BASO % 2 % (0-3); EOS # 0.1 x10^3/uL (0.0-0.7); EOS % 3 % (0-3); HEMATOCRIT 34.2 % (36.0-47.0); HEMOGLOBIN 11.9 g/dL (12.0-15.5); LYMPH # 1.1 x10^3/uL (1.0-4.8); LYMPH % 27 % (24-48); MEAN CORPUSCULAR HEMOGLOBIN 36 pg (25-35); MEAN CORPUSCULAR HGB CONC 35 g/dL (31-37); MEAN CORPUSCULAR VOLUME 104 fL (79-100); MONO # 0.6 x10^3/uL (0.0-1.1); MONO % 16 % (0-9); NEUT % 52 % (31-73); PLATELET COUNT 234 x10^3/uL (140-400); RED BLOOD COUNT 3.27 x10^6/uL (3.50-5.40); RED CELL DISTRIBUTION WIDTH 15.9 % (11.5-14.5); WHITE BLOOD COUNT 3.9 x10^3/uL (4.0-11.0)
[2021-02-21 09:56] LABS: CALCIUM 8.5 mg/dL (8.5-10.1); CREATININE 1.1 mg/dL (0.6-1.0); GFR 48.2; POTASSIUM 4.1 mmol/L (3.5-5.1)
[2021-02-21 10:02] LABS: ALBUMIN 3.3 g/dL (3.4-5.0); ALBUMIN/GLOBULIN RATIO 0.9 (1.0-1.7); TOTAL BILIRUBIN 0.3 mg/dL (0.2-1.0); TOTAL PROTEIN 6.8 g/dL (6.4-8.2)
== END ==
LOC: ONCLAB 09:19
PROVIDERS: ATTEND Physician Assistant
DX: C50.412 Malignant neoplasm of upper-outer quadrant of left female breast (principal)
CPT/HCPCS: 36415; 80053; 85025

== ENCOUNTER → 2021-03-22 | Outpatient (CLI) | payer MEDICARE, OTHER ==
[2021-03-22 08:52] LABS: BASO # 0.1 x10^3/uL (0.0-0.2); BASO % 3 % (0-3); EOS # 0.1 x10^3/uL (0.0-0.7); EOS % 3 % (0-3); HEMATOCRIT 37.2 % (36.0-47.0); HEMOGLOBIN 12.5 g/dL (12.0-15.5); LYMPH # 1.2 x10^3/uL (1.0-4.8); LYMPH % 32 % (24-48); MEAN CORPUSCULAR HEMOGLOBIN 35 pg (25-35); MEAN CORPUSCULAR HGB CONC 34 g/dL (31-37); MEAN CORPUSCULAR VOLUME 105 fL (79-100); MONO # 0.5 x10^3/uL (0.0-1.1); MONO % 14 % (0-9); NEUT # 1.9 x10^3/uL (1.8-7.7); NEUT % 48 % (31-73); PLATELET COUNT 231 x10^3/uL (140-400); RED BLOOD COUNT 3.54 x10^6/uL (3.50-5.40); RED CELL DISTRIBUTION WIDTH 16.2 % (11.5-14.5); WHITE BLOOD COUNT 3.9 x10^3/uL (4.0-11.0)
[2021-03-22 08:59] LABS: CALCIUM 8.3 mg/dL (8.5-10.1); CREATININE 1.1 mg/dL (0.6-1.0); GFR 48.2; POTASSIUM 4.2 mmol/L (3.5-5.1)
[2021-03-22 09:04] LABS: ALBUMIN 3.5 g/dL (3.4-5.0); ALBUMIN/GLOBULIN RATIO 1.1 (1.0-1.7); TOTAL BILIRUBIN 0.3 mg/dL (0.2-1.0); TOTAL PROTEIN 6.7 g/dL (6.4-8.2)
== END ==
LOC: ONCLAB 08:34
PROVIDERS: ATTEND Internal Medicine Hematology & Oncology
DX: C50.412 Malignant neoplasm of upper-outer quadrant of left female breast (principal)
CPT/HCPCS: 36415; 80053; 85025

== ENCOUNTER → 2021-04-02 | Outpatient (CLI) | payer MEDICARE, OTHER ==
[~2021-04-02] MED LIST changes: +CONTRAST GIVEN. MC PRN; +IOHEXOL 240 MG/ML 50ML VIAL. PO ONE; -LISI-517 PO; +LISI5TAB15 PO
--- NOTE | 2021-04-02 17:15 | RAD ---
EXAM: CT CHEST, ABDOMEN, AND PELVIS WITHOUT CONTRAST INDICATION: Left breast cancer COMPARISON: CT chest abdomen pelvis 12/24/2020 TECHNIQUE: Helical CT imaging performed of the chest, abdomen and pelvis without the use of intraveno us contrast. Sagittal and coronal reformats were obtained. One or more of the following individualized dose reduction techniques were utilized for this examinat ion: 1. Automated exposure control 2. Adjustment of the mA and/or kV according to patient size 3. Use of iterative reconstruction technique. FINDINGS: CHEST: Thyroid gland and thoracic inlet: Normal. Heart and great vessels: The heart is normal in size. No pericardial effusion. The thoracic aorta is normal in caliber. There is a right Port-A-Cath with tip terminating in the lower superior vena cava. Mediastinum and danisha: There are calcified mediastinal and left hilar lymph nodes. No lymphadenopathy. Lungs and pleura: There is a calcified granuloma in the left upper lobe. Mild atelectasis in the righ t middle lobe. No pleural effusion. Chest wall and axillae: There is a left breast mass measuring approximately 2.4 x 2.3 cm, unchanged. Mild skin thickening in the left breast. No axillary lymphadenopathy. Bones: Unchanged diffuse osseous metastatic disease. Unchanged pathologic compression fracture of T6 with mild height loss. There are healing bilateral rib fractures. ABDOMEN AND PELVIS: Liver: Calcified hepatic granulomas. Evaluation for liver metastases is limited on noncontrast exam. Gallbladder/Biliary Tree: Cholelithiasis. Pancreas: Normal. Spleen: Numerous calcified splenic granulomas. No splenomegaly. Adrenal Glands: Normal. Kidneys/Ureters/Bladder: Kidneys are normal in size. There is no nephrolithiasis or hydronephrosis. U reters and bladder are normal. Reproductive Organs: Uterus is anteverted. No adnexal mass. Stomach, small bowel, and colon: Small hiatal hernia. The stomach is otherwise normal. There is no sm all bowel obstruction. The appendix is normal. There is diverticulosis in the descending and sigmoid colon. Vasculature: No aortic aneurysm. Lymph Nodes: No lymphadenopathy. Peritoneum and retroperitoneum: No free fluid or free air. Bones: Unchanged diffuse osseous metastatic disease. Unchanged compression fracture with mild to mode rate height loss at L4. Moderate degenerative disc disease and mild anterolisthesis at L3-L4 and L4-L 5 is unchanged. Other: Small fat-containing umbilical hernia. IMPRESSION: 1. Unchanged left breast mass. 2. Unchanged diffuse osseous metastatic disease with stable pathologic compression fractures of T6 a nd L4, and old or healing bilateral rib fractures. 3. No new sites of metastatic disease. Electronically signed by: Yumi Grey MD (04/02/2021 5:12 PM) [id number]
--- NOTE | 2021-04-02 17:53 | RAD ---
EXAM: NM BONE SCAN WHOLE BODY, NM INJECTION 04/02/2021 12:55 PM CLINICAL INDICATION: Breast cancer COMPARISON: Bone scan 12/24/2020 TECHNIQUE: The patient was administered 25.2 mCi technetium 99 labeled MDP and whole body bone scint igraphy was performed. FINDINGS: There is physiologic distribution of radiotracer. There are unchanged foci of uptake in th e right posterior rib, suggestive of milder uptake in some of the left posterior ribs. There are foci of uptake in the bilateral shoulders, humeral shaft, femurs and proximal tibia, unchanged. There is a sclerotic focus of uptake in the right skull that is unchanged. Probable radiotracer uptake in the sternum. Heterogeneous radiotracer uptake throughout the spine, possibly slightly decreased in intens ity from the prior exam. No definite new areas of radiotracer uptake. IMPRESSION: No significant change in diffuse osseous metastatic disease. Electronically signed by: Yumi Grey MD (04/02/2021 5:51 PM) [id number]
== END ==
LOC: NM 09:49
PROVIDERS: ATTEND Internal Medicine Hematology & Oncology
DX: C50.412 Malignant neoplasm of upper-outer quadrant of left female breast (principal); K42.9 Umbilical hernia without obstruction or gangrene; K44.9 Diaphragmatic hernia without obstruction or gangrene; K75.3 Granulomatous hepatitis, not elsewhere classified; N85.4 Malposition of uterus; K57.30 Diverticulosis of large intestine without perforation or abscess without bleeding; K80.20 Calculus of gallbladder without cholecystitis without obstruction; M48.56XD Collapsed vertebra, not elsewhere classified, lumbar region, subsequent encounter for fracture with routine healing; M51.36 Other intervertebral disc degeneration, lumbar region; M43.16 Spondylolisthesis, lumbar region
CPT/HCPCS: 71250; 74176; 78306; A9503; Q9966

== ENCOUNTER → 2021-04-23 | Outpatient (CLI) | payer MEDICARE, OTHER ==
[~2021-04-23] MED LIST changes: -CONTRAST GIVEN. MC PRN; -IOHEXOL 240 MG/ML 50ML VIAL. PO ONE
[2021-04-23 09:12] LABS: BASO # 0.1 x10^3/uL (0.0-0.2); BASO % 2 % (0-3); EOS # 0.1 x10^3/uL (0.0-0.7); EOS % 4 % (0-3); HEMATOCRIT 35.2 % (36.0-47.0); HEMOGLOBIN 11.7 g/dL (12.0-15.5); LYMPH % 28 % (24-48); MEAN CORPUSCULAR HEMOGLOBIN 35 pg (25-35); MEAN CORPUSCULAR HGB CONC 33 g/dL (31-37); MEAN CORPUSCULAR VOLUME 106 fL (79-100); MONO # 0.3 x10^3/uL (0.0-1.1); MONO % 10 % (0-9); NEUT % 56 % (31-73); PLATELET COUNT 304 x10^3/uL (140-400); RED BLOOD COUNT 3.32 x10^6/uL (3.50-5.40); RED CELL DISTRIBUTION WIDTH 16.4 % (11.5-14.5); WHITE BLOOD COUNT 3.5 x10^3/uL (4.0-11.0)
[2021-04-23 09:32] LABS: CALCIUM 8.3 mg/dL (8.5-10.1); CREATININE 0.9 mg/dL (0.6-1.0); GFR 60.7; POTASSIUM 3.7 mmol/L (3.5-5.1)
[2021-04-23 09:39] LABS: ALBUMIN 3.5 g/dL (3.4-5.0); ALBUMIN/GLOBULIN RATIO 1.3 (1.0-1.7); TOTAL BILIRUBIN 0.4 mg/dL (0.2-1.0); TOTAL PROTEIN 6.3 g/dL (6.4-8.2)
== END ==
LOC: ONCLAB 08:36
PROVIDERS: ATTEND Internal Medicine Hematology & Oncology
DX: C50.412 Malignant neoplasm of upper-outer quadrant of left female breast (principal)
CPT/HCPCS: 36415; 80053; 85025

== ENCOUNTER → 2021-05-21 | Outpatient (CLI) | payer MEDICARE, OTHER ==
[2021-05-21 09:21] LABS: BASO # 0.1 x10^3/uL (0.0-0.2); BASO % 3 % (0-3); EOS # 0.2 x10^3/uL (0.0-0.7); EOS % 5 % (0-3); HEMOGLOBIN 11.9 g/dL (12.0-15.5); LYMPH # 0.8 x10^3/uL (1.0-4.8); LYMPH % 24 % (24-48); MEAN CORPUSCULAR HEMOGLOBIN 35 pg (25-35); MEAN CORPUSCULAR HGB CONC 33 g/dL (31-37); MEAN CORPUSCULAR VOLUME 106 fL (79-100); MONO # 0.3 x10^3/uL (0.0-1.1); MONO % 8 % (0-9); NEUT # 2.1 x10^3/uL (1.8-7.7); NEUT % 60 % (31-73); PLATELET COUNT 322 x10^3/uL (140-400); RED BLOOD COUNT 3.39 x10^6/uL (3.50-5.40); RED CELL DISTRIBUTION WIDTH 15.9 % (11.5-14.5); WHITE BLOOD COUNT 3.5 x10^3/uL (4.0-11.0)
[2021-05-21 09:27] LABS: CALCIUM 8.6 mg/dL (8.5-10.1); CREATININE 0.9 mg/dL (0.6-1.0); GFR 60.7; POTASSIUM 3.8 mmol/L (3.5-5.1)
[2021-05-21 09:33] LABS: ALBUMIN 3.3 g/dL (3.4-5.0); TOTAL BILIRUBIN 0.4 mg/dL (0.2-1.0); TOTAL PROTEIN 6.7 g/dL (6.4-8.2)
[2021-05-21 11:22] LABS: % BANDS 4 % (0-9); % BASOS 2 % (0-3); % EOS 5 % (0-5); % LYMPHS 21 % (24-48); % MONOS 10 % (0-10); % SEGS 58 % (35-66)
[2021-05-21 11:23] LABS: PLT ESTIMATE ADEQUATE (ADEQUATE)
[2021-05-21 11:24] LABS: ANISOCYTOSIS PRESENT
== END ==
LOC: ONCLAB 09:02
PROVIDERS: ATTEND Internal Medicine Hematology & Oncology
DX: C50.412 Malignant neoplasm of upper-outer quadrant of left female breast (principal)
CPT/HCPCS: 36415; 80053; 85007; 85025

== ENCOUNTER → 2021-06-21 | Outpatient (CLI) | payer MEDICARE, OTHER ==
[2021-06-21 10:09] LABS: BASO # 0.1 x10^3/uL (0.0-0.2); BASO % 3 % (0-3); EOS # 0.2 x10^3/uL (0.0-0.7); EOS % 5 % (0-3); HEMATOCRIT 35.7 % (36.0-47.0); HEMOGLOBIN 11.9 g/dL (12.0-15.5); LYMPH # 0.8 x10^3/uL (1.0-4.8); LYMPH % 23 % (24-48); MEAN CORPUSCULAR HEMOGLOBIN 35 pg (25-35); MEAN CORPUSCULAR HGB CONC 33 g/dL (31-37); MEAN CORPUSCULAR VOLUME 106 fL (79-100); MONO # 0.2 x10^3/uL (0.0-1.1); MONO % 7 % (0-9); NEUT # 2.1 x10^3/uL (1.8-7.7); NEUT % 62 % (31-73); PLATELET COUNT 345 x10^3/uL (140-400); RED BLOOD COUNT 3.37 x10^6/uL (3.50-5.40); RED CELL DISTRIBUTION WIDTH 14.9 % (11.5-14.5); WHITE BLOOD COUNT 3.4 x10^3/uL (4.0-11.0)
[2021-06-21 10:23] LABS: CALCIUM 8.2 mg/dL (8.5-10.1); GFR 53.8; POTASSIUM 3.9 mmol/L (3.5-5.1)
[2021-06-21 10:27] LABS: ALBUMIN 3.2 g/dL (3.4-5.0); ALBUMIN/GLOBULIN RATIO 0.9 (1.0-1.7); TOTAL BILIRUBIN 0.4 mg/dL (0.2-1.0); TOTAL PROTEIN 6.8 g/dL (6.4-8.2)
== END ==
LOC: ONCLAB 09:32
PROVIDERS: ATTEND Internal Medicine Hematology & Oncology
DX: C50.412 Malignant neoplasm of upper-outer quadrant of left female breast (principal)
CPT/HCPCS: 36415; 80053; 85025

== ENCOUNTER → 2021-07-15 | Outpatient (CLI) | payer MEDICARE, OTHER ==
[~2021-07-15] MED LIST changes: +IOHEXOL 240 MG/ML 50ML VIAL. PO ONE
--- NOTE | 2021-07-15 12:27 | RAD ---
Examination: CT of the chest abdomen pelvis without IV contrast HISTORY: History of breast cancer COMPARISON: 12/24/2020 TECHNIQUE: Axial CT images of chest abdomen and pelvis were performed without contrast. Coronal and s agittal reformats are performed. Exposure: One or more of the following individualized dose reduction techniques were utilized for thi s examination: 1. Automated exposure control 2. Adjustment of the mA and/or kV according to patient size 3. Use of iterative reconstruction technique. FINDINGS: The central airways are patent. Mild cardiomegaly. No radiologically significant mediastinal lymphade nopathy. Small hiatal hernia again identified. Unchanged left breast mass measuring 2.5 cm with mild skin thickening similar to prior exam. Minimal bibasilar lung atelectasis. Small calcified granulomas identified in the liver spleen identified. The gallbladder is mildly distended. Small amount of slud ge in the proximal gallbladder. The stomach is mildly distended with visualized pancreas grossly appears unremarkable. The small shirlene l is nondilated. Feces and gas noted in the colon. Numerous diverticulosis identified in the descendi ng and sigmoid colon. Urinary bladder is mildly distended. No evidence of intraluminal system calculi or hydronephrosis Multiple sclerotic foci identified in the thoracic, lumbar spine and the sternum with mild compressio n changes of T6 and L4 vertebral body identified likely multiple osseous metastases. IMPRESSION: 1. Left breast mass is unchanged. 2. Diffuse osseous metastatic disease with mild compression changes of T6 and L4 vertebral body simil ar to prior exam. Electronically signed by: Jef Bell MD (07/15/2021 12:25 PM) [id number]
--- NOTE | 2021-07-15 14:02 | RAD ---
EXAM: Nuclear bone scan. HISTORY: Breast cancer. TECHNIQUE: Following the intravenous injection of 25.2 mCi of Tc 99m labeled methylene diphosphonate (MDP), whole body imaging was performed. COMPARISON: 04/02/2021 FINDINGS: There are multiple focal areas of abnormal radiotracer activity within the axial and append icular skeleton, consistent with osseous metastatic disease. There are lesions involving the right pa rietal bone, multiple vertebral bodies, the bilateral humeri and femurs, proximal tibias, multiple ri bs and possibly the right aspect of the sternum. There is suspected degenerative activity involving t he wrists and feet and shoulders. The number and size of osseous metastases is unchanged. However, th e degree of tracer uptake appears slightly decreased. IMPRESSION: Multiple osseous metastases, not a partially changed in size or number compared to the pr ior exam. The degree of activity associated with these lesions appear slightly decreased, suggesting slight interval therapy response. Electronically signed by: Kalani Villa MD (07/15/2021 2:00 PM) [id number]
== END ==
LOC: CT 10:07
PROVIDERS: ATTEND Internal Medicine Hematology & Oncology
DX: C50.412 Malignant neoplasm of upper-outer quadrant of left female breast (principal); C79.51 Secondary malignant neoplasm of bone; I51.7 Cardiomegaly; K44.9 Diaphragmatic hernia without obstruction or gangrene; K76.89 Other specified diseases of liver; K82.8 Other specified diseases of gallbladder; N32.89 Other specified disorders of bladder; K57.30 Diverticulosis of large intestine without perforation or abscess without bleeding; M48.54XA Collapsed vertebra, not elsewhere classified, thoracic region, initial encounter for fracture; M48.56XA Collapsed vertebra, not elsewhere classified, lumbar region, initial encounter for fracture
CPT/HCPCS: 71250; 74176; 78306; A9503; Q9966

== ENCOUNTER → 2021-07-19 | Outpatient (CLI) | payer MEDICARE, OTHER ==
[~2021-07-19] MED LIST changes: -IOHEXOL 240 MG/ML 50ML VIAL. PO ONE
[2021-07-19 09:43] LABS: BASO # 0.1 x10^3/uL (0.0-0.2); BASO % 4 % (0-3); EOS # 0.2 x10^3/uL (0.0-0.7); EOS % 6 % (0-3); HEMATOCRIT 36.3 % (36.0-47.0); HEMOGLOBIN 11.9 g/dL (12.0-15.5); LYMPH # 0.7 x10^3/uL (1.0-4.8); LYMPH % 26 % (24-48); MEAN CORPUSCULAR HEMOGLOBIN 35 pg (25-35); MEAN CORPUSCULAR HGB CONC 33 g/dL (31-37); MEAN CORPUSCULAR VOLUME 107 fL (79-100); MONO # 0.2 x10^3/uL (0.0-1.1); MONO % 9 % (0-9); NEUT # 1.4 x10^3/uL (1.8-7.7); NEUT % 55 % (31-73); PLATELET COUNT 339 x10^3/uL (140-400); RED CELL DISTRIBUTION WIDTH 15.6 % (11.5-14.5); WHITE BLOOD COUNT 2.6 x10^3/uL (4.0-11.0)
[2021-07-19 09:57] LABS: CALCIUM 7.6 mg/dL (8.5-10.1); GFR 53.8
[2021-07-19 10:02] LABS: ALBUMIN 3.2 g/dL (3.4-5.0); ALBUMIN/GLOBULIN RATIO 0.9 (1.0-1.7); TOTAL BILIRUBIN 0.3 mg/dL (0.2-1.0); TOTAL PROTEIN 6.7 g/dL (6.4-8.2)
[2021-07-19 11:54] LABS: % BASOS 3 % (0-3); % EOS 7 % (0-5); % LYMPHS 31 % (24-48); % MONOS 1 % (0-10); % SEGS 58 % (35-66); PLT ESTIMATE ADEQUATE (ADEQUATE)
== END ==
LOC: ONCLAB 09:25
PROVIDERS: ATTEND Internal Medicine Hematology & Oncology
DX: C50.412 Malignant neoplasm of upper-outer quadrant of left female breast (principal)
CPT/HCPCS: 36415; 80053; 85007; 85025

== ENCOUNTER → 2021-07-22 | Outpatient (CLI) | payer MEDICARE, OTHER ==
[2021-07-22 11:20] LABS: BASO # 0.1 x10^3/uL (0.0-0.2); BASO % 3 % (0-3); EOS # 0.1 x10^3/uL (0.0-0.7); EOS % 4 % (0-3); HEMATOCRIT 36.8 % (36.0-47.0); LYMPH # 0.5 x10^3/uL (1.0-4.8); LYMPH % 20 % (24-48); MEAN CORPUSCULAR HEMOGLOBIN 35 pg (25-35); MEAN CORPUSCULAR HGB CONC 33 g/dL (31-37); MEAN CORPUSCULAR VOLUME 107 fL (79-100); MONO # 0.3 x10^3/uL (0.0-1.1); MONO % 10 % (0-9); NEUT # 1.7 x10^3/uL (1.8-7.7); NEUT % 64 % (31-73); PLATELET COUNT 339 x10^3/uL (140-400); RED BLOOD COUNT 3.45 x10^6/uL (3.50-5.40); RED CELL DISTRIBUTION WIDTH 15.7 % (11.5-14.5); WHITE BLOOD COUNT 2.6 x10^3/uL (4.0-11.0)
[2021-07-22 11:39] LABS: CALCIUM 9.1 mg/dL (8.5-10.1); CREATININE 1.1 mg/dL (0.6-1.0); GFR 48.2
[2021-07-22 11:44] LABS: ALBUMIN 3.6 g/dL (3.4-5.0); ALBUMIN/GLOBULIN RATIO 1.1 (1.0-1.7); TOTAL BILIRUBIN 0.3 mg/dL (0.2-1.0)
== END ==
LOC: ONCLAB 10:52
PROVIDERS: ATTEND Internal Medicine Hematology & Oncology
DX: C50.412 Malignant neoplasm of upper-outer quadrant of left female breast (principal)
CPT/HCPCS: 36415; 80053; 85025

== ENCOUNTER → 2021-08-19 | Outpatient (CLI) | payer MEDICARE, OTHER ==
[2021-08-19 11:10] LABS: BASO # 0.1 x10^3/uL (0.0-0.2); BASO % 3 % (0-3); EOS # 0.1 x10^3/uL (0.0-0.7); EOS % 5 % (0-3); HEMATOCRIT 33.5 % (36.0-47.0); HEMOGLOBIN 11.3 g/dL (12.0-15.5); LYMPH # 0.7 x10^3/uL (1.0-4.8); LYMPH % 26 % (24-48); MEAN CORPUSCULAR HEMOGLOBIN 36 pg (25-35); MEAN CORPUSCULAR HGB CONC 34 g/dL (31-37); MEAN CORPUSCULAR VOLUME 106 fL (79-100); MONO # 0.2 x10^3/uL (0.0-1.1); MONO % 8 % (0-9); NEUT # 1.5 x10^3/uL (1.8-7.7); NEUT % 59 % (31-73); PLATELET COUNT 308 x10^3/uL (140-400); RED BLOOD COUNT 3.15 x10^6/uL (3.50-5.40); RED CELL DISTRIBUTION WIDTH 15.7 % (11.5-14.5); WHITE BLOOD COUNT 2.6 x10^3/uL (4.0-11.0)
[2021-08-19 11:13] LABS: CALCIUM 8.6 mg/dL (8.5-10.1); GFR 53.8
[2021-08-19 11:16] LABS: ALBUMIN 3.6 g/dL (3.4-5.0); ALBUMIN/GLOBULIN RATIO 1.1 (1.0-1.7); TOTAL BILIRUBIN 0.3 mg/dL (0.2-1.0); TOTAL PROTEIN 6.8 g/dL (6.4-8.2)
== END ==
LOC: ONCLAB 10:29
PROVIDERS: ATTEND Physician Assistant
DX: C50.412 Malignant neoplasm of upper-outer quadrant of left female breast (principal)
CPT/HCPCS: 36415; 80053; 83615; 85025

== ENCOUNTER → 2021-09-02 | Outpatient (CLI) | payer MEDICARE, OTHER ==
[2021-09-02 11:28] LABS: BASO # 0.1 x10^3/uL (0.0-0.2); BASO % 3 % (0-3); EOS # 0.1 x10^3/uL (0.0-0.7); EOS % 3 % (0-3); HEMATOCRIT 35.8 % (36.0-47.0); HEMOGLOBIN 12.3 g/dL (12.0-15.5); LYMPH # 0.6 x10^3/uL (1.0-4.8); LYMPH % 22 % (24-48); MEAN CORPUSCULAR HEMOGLOBIN 36 pg (25-35); MEAN CORPUSCULAR HGB CONC 34 g/dL (31-37); MEAN CORPUSCULAR VOLUME 106 fL (79-100); MONO # 0.5 x10^3/uL (0.0-1.1); MONO % 19 % (0-9); NEUT # 1.3 x10^3/uL (1.8-7.7); NEUT % 52 % (31-73); PLATELET COUNT 222 x10^3/uL (140-400); RED BLOOD COUNT 3.38 x10^6/uL (3.50-5.40); RED CELL DISTRIBUTION WIDTH 15.7 % (11.5-14.5); WHITE BLOOD COUNT 2.6 x10^3/uL (4.0-11.0)
[2021-09-02 11:29] LABS: CALCIUM 8.9 mg/dL (8.5-10.1); CREATININE 0.9 mg/dL (0.6-1.0); GFR 60.7; POTASSIUM 3.8 mmol/L (3.5-5.1)
[2021-09-02 11:35] LABS: ALBUMIN 3.8 g/dL (3.4-5.0); ALBUMIN/GLOBULIN RATIO 1.1 (1.0-1.7); TOTAL BILIRUBIN 0.3 mg/dL (0.2-1.0); TOTAL PROTEIN 7.2 g/dL (6.4-8.2)
[2021-09-02 12:49] LABS: % BASOS 3 % (0-3); % EOS 5 % (0-5); % LYMPHS 18 % (24-48); % MONOS 20 % (0-10); % SEGS 54 % (35-66); ANISOCYTOSIS PRESENT; PLT ESTIMATE ADEQUATE (ADEQUATE)
== END ==
LOC: ONCLAB 10:45
PROVIDERS: ATTEND Internal Medicine Hematology & Oncology
DX: C50.412 Malignant neoplasm of upper-outer quadrant of left female breast (principal)
CPT/HCPCS: 36415; 80053; 83615; 85007; 85025; 86300

== ENCOUNTER → 2021-09-16 | Outpatient (CLI) | payer MEDICARE, OTHER ==
[2021-09-16 11:27] LABS: BASO # 0.1 x10^3/uL (0.0-0.2); BASO % 3 % (0-3); EOS # 0.1 x10^3/uL (0.0-0.7); EOS % 3 % (0-3); HEMATOCRIT 35.5 % (36.0-47.0); HEMOGLOBIN 11.7 g/dL (12.0-15.5); LYMPH # 0.6 x10^3/uL (1.0-4.8); LYMPH % 21 % (24-48); MEAN CORPUSCULAR HEMOGLOBIN 35 pg (25-35); MEAN CORPUSCULAR HGB CONC 33 g/dL (31-37); MEAN CORPUSCULAR VOLUME 106 fL (79-100); MONO # 0.2 x10^3/uL (0.0-1.1); MONO % 5 % (0-9); NEUT % 68 % (31-73); PLATELET COUNT 333 x10^3/uL (140-400); RED BLOOD COUNT 3.36 x10^6/uL (3.50-5.40); RED CELL DISTRIBUTION WIDTH 15.4 % (11.5-14.5)
[2021-09-16 11:52] LABS: CALCIUM 8.4 mg/dL (8.5-10.1); GFR 53.8; POTASSIUM 3.7 mmol/L (3.5-5.1)
[2021-09-16 12:01] LABS: ALBUMIN 3.5 g/dL (3.4-5.0); TOTAL BILIRUBIN 0.3 mg/dL (0.2-1.0)
== END ==
LOC: ONCLAB 10:41
PROVIDERS: ATTEND Internal Medicine Hematology & Oncology
DX: C50.412 Malignant neoplasm of upper-outer quadrant of left female breast (principal)
CPT/HCPCS: 36415; 80053; 83615; 85025

== ENCOUNTER → 2021-09-30 | Outpatient (CLI) | payer MEDICARE, OTHER ==
[2021-09-30 11:43] LABS: CALCIUM 8.6 mg/dL (8.5-10.1); CREATININE 1.1 mg/dL (0.6-1.0); GFR 48.2; POTASSIUM 3.7 mmol/L (3.5-5.1)
[2021-09-30 11:47] LABS: BASO # 0.1 x10^3/uL (0.0-0.2); BASO % 3 % (0-3); EOS # 0.1 x10^3/uL (0.0-0.7); EOS % 4 % (0-3); HEMATOCRIT 36.6 % (36.0-47.0); HEMOGLOBIN 12.3 g/dL (12.0-15.5); LYMPH # 0.7 x10^3/uL (1.0-4.8); LYMPH % 29 % (24-48); MEAN CORPUSCULAR HEMOGLOBIN 35 pg (25-35); MEAN CORPUSCULAR HGB CONC 34 g/dL (31-37); MEAN CORPUSCULAR VOLUME 105 fL (79-100); MONO # 0.4 x10^3/uL (0.0-1.1); MONO % 18 % (0-9); NEUT # 1.1 x10^3/uL (1.8-7.7); NEUT % 47 % (31-73); PLATELET COUNT 231 x10^3/uL (140-400); RED BLOOD COUNT 3.48 x10^6/uL (3.50-5.40); RED CELL DISTRIBUTION WIDTH 15.9 % (11.5-14.5); WHITE BLOOD COUNT 2.3 x10^3/uL (4.0-11.0)
[2021-09-30 11:50] LABS: ALBUMIN 3.7 g/dL (3.4-5.0); ALBUMIN/GLOBULIN RATIO 1.1 (1.0-1.7); TOTAL BILIRUBIN 0.4 mg/dL (0.2-1.0); TOTAL PROTEIN 7.1 g/dL (6.4-8.2)
== END ==
LOC: ONCLAB 11:02
PROVIDERS: ATTEND Internal Medicine Hematology & Oncology
DX: C50.412 Malignant neoplasm of upper-outer quadrant of left female breast (principal)
CPT/HCPCS: 36415; 80053; 85025

== ENCOUNTER → 2021-10-14 | Outpatient (CLI) | payer MEDICARE, OTHER ==
[~2021-10-14] MED LIST changes: +CONTRAST GIVEN. MC PRN; +IOHEXOL 240 MG/ML 50ML VIAL. PO ONE; +IOHEXOL 300 MG/ML 100ML VIAL. IV ONE
--- NOTE | 2021-10-15 07:48 | RAD ---
CT CHEST+ABD+PELVIS W History: Restaging breast cancer. Comparison: Bone scan 07/15/2021. CT chest, abdomen and pelvis 07/15/2021, 04/02/2021. Technique: CT of the chest, abdomen and pelvis with intravenous contrast. Findings: Chest: Devices: Right chest Mediport with IJ approach catheter terminating at the cavoatrial junction. Pulmonary arteries: No large or central embolism. Caliber at the upper limits of normal. Aorta and great vessels: No aneurysm of the aortic arch or thoracic aorta is seen. Mild atherosclerot ic calcification. Heart: Mild cardiomegaly. No pericardial effusion. No coronary artery calcification. Thyroid: No significant abnormalities. Mediastinum and danisha: Calcified AP window and left hilar lymph nodes. No enlarged adenopathy. Esophagus: Mild sliding hiatal hernia. Airways, Lungs, Pleura: Calcified left lung granuloma. Mild dependent changes in the lungs. Soft tissue and osseous: Diffuse extensive metastatic disease with redemonstrated T6 compression defo rmity. Redemonstrated left seventh rib fracture deformities. Left breast soft tissue mass. Abdomen/Pelvis: General abdomen: No ascites. No free air. Liver : Normal in size and attenuation. Punctate granulomatous calcifications. No masses identified. Gallbladder/Biliary Tree: Prenatally layering stones or sludge of the neck. No intrahepatic or extrah epatic biliary ductal dilatation. Pancreas: Normal. Spleen: Extensive granulomatous calcifications. Adrenal glands: Normal. Kidneys: No hydronephrosis or hydroureter. Subcentimeter hypoattenuations within the left kidney are too small to characterize, likely benign cysts. Gastrointestinal: Pancolonic diverticulosis. No evidence of diverticulitis. Lymph nodes: No adenopathy. Vessels: Mild aortoiliac calcification. No aneurysm. Pelvic Organs: Status post hysterectomy. No pelvic masses. Relatively decompressed bladder is unremar kable. Soft tissues: Small fat-containing umbilical hernia. Bones: Extensive metastatic disease throughout the lumbar spine and pelvis. Redemonstrated mild anter olisthesis of L3 on L4 and L4 on L5. Anterior compression deformity of L4 is unchanged. Impression: 1. Similar appearance of diffuse osseous metastatic disease. No new pathologic fractures identified. 2. No other evidence of metastatic disease. 3. Chronic findings including calcified granulomatous disease, cardiomegaly, small hiatal hernia, ch olelithiasis versus sludge, and extensive diverticulosis. ------ Exposure: One or more of the following individualized dose reduction techniques were utilized for thi s examination: 1. Automated exposure control 2. Adjustment of the mA and/or kV according to patient size 3. Use of iterative reconstruction technique. Electronically signed by: Faraz Kearns MD (10/14/2021 4:13 PM) [id number]
== END ==
LOC: CT 09:27
PROVIDERS: ATTEND Physician Assistant
DX: C79.51 Secondary malignant neoplasm of bone (principal); C79.89 Secondary malignant neoplasm of other specified sites; I51.7 Cardiomegaly; J84.10 Pulmonary fibrosis, unspecified; K44.9 Diaphragmatic hernia without obstruction or gangrene; K42.9 Umbilical hernia without obstruction or gangrene; K76.89 Other specified diseases of liver; D73.89 Other diseases of spleen; I70.8 Atherosclerosis of other arteries; K57.30 Diverticulosis of large intestine without perforation or abscess without bleeding; M43.8X6 Other specified deforming dorsopathies, lumbar region; M43.8X4 Other specified deforming dorsopathies, thoracic region; M95.4 Acquired deformity of chest and rib; Z90.710 Acquired absence of both cervix and uterus
CPT/HCPCS: 71260; 74177; Q9966; Q9967

== ENCOUNTER → 2021-10-23 | Outpatient (CLI) | payer MEDICARE, OTHER ==
[~2021-10-23] MED LIST changes: -CONTRAST GIVEN. MC PRN; -IOHEXOL 240 MG/ML 50ML VIAL. PO ONE; -IOHEXOL 300 MG/ML 100ML VIAL. IV ONE
[2021-10-23 14:03] LABS: CALCIUM 8.3 mg/dL (8.5-10.1); GFR 53.8; POTASSIUM 4.3 mmol/L (3.5-5.1)
[2021-10-23 14:07] LABS: BASO # 0.1 x10^3/uL (0.0-0.2); BASO % 3 % (0-3); EOS # 0.1 x10^3/uL (0.0-0.7); EOS % 6 % (0-3); LYMPH # 0.5 x10^3/uL (1.0-4.8); LYMPH % 28 % (24-48); MEAN CORPUSCULAR HEMOGLOBIN 36 pg (25-35); MEAN CORPUSCULAR HGB CONC 34 g/dL (31-37); MEAN CORPUSCULAR VOLUME 104 fL (79-100); MONO # 0.2 x10^3/uL (0.0-1.1); MONO % 13 % (0-9); NEUT # 0.9 x10^3/uL (1.8-7.7); NEUT % 50 % (31-73); PLATELET COUNT 211 x10^3/uL (140-400); RED BLOOD COUNT 3.35 x10^6/uL (3.50-5.40); RED CELL DISTRIBUTION WIDTH 15.1 % (11.5-14.5)
[2021-10-23 14:08] LABS: ALBUMIN 3.5 g/dL (3.4-5.0); ALBUMIN/GLOBULIN RATIO 1.2 (1.0-1.7); TOTAL BILIRUBIN 0.5 mg/dL (0.2-1.0); TOTAL PROTEIN 6.5 g/dL (6.4-8.2)
[2021-10-23 14:16] LABS: WHITE BLOOD COUNT 1.8 x10^3/uL (4.0-11.0)
[2021-10-23 14:55] LABS: % BANDS 1 % (0-9); % BASOS 4 % (0-3); % EOS 5 % (0-5); % LYMPHS 36 % (24-48); % MONOS 6 % (0-10); % SEGS 48 % (35-66)
[2021-10-23 14:57] LABS: PLT ESTIMATE ADEQUATE (ADEQUATE)
== END ==
LOC: ONCLAB 11:15
PROVIDERS: ATTEND Physician Assistant
DX: C50.412 Malignant neoplasm of upper-outer quadrant of left female breast (principal)
CPT/HCPCS: 36415; 80053; 83615; 85007; 85025